=== PATIENT | male | born 1970 | race Two or more races ===

== ENCOUNTER 2020-07-16 11:23 | Emergency (ER) | payer OTHER, SELFPAY ==
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
[2020-07-16 11:33] VITALS: BP 159/102; PULSE 103; RESP 18; TEMP 36.7; O2SAT 99; BMI 28.3
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
[2020-07-16 13:06] VITALS: BP 147/88; PULSE 66; RESP 16; TEMP 36.8; O2SAT 98
[2020-07-16] MEDS: Acetaminophen 325 MG TABLET 650 MG PO (13:18)
[2020-07-16] MEDS: oxyCODONE HCl Immed Release 5 MG TABLET PO (13:44)
== END 2020-07-16 13:47 | disposition home or self-care (01) ==
PROVIDERS: Emergency Provider Emergency Medicine
DX: S16.1XXA Strain of muscle, fascia and tendon at neck level, initial encounter (principal); S63.502A Unspecified sprain of left wrist, initial encounter; M25.532 Pain in left wrist; M54.2 Cervicalgia; V43.52XA Car driver injured in collision with other type car in traffic accident, initial encounter; Y93.9 Activity, unspecified; Y92.410 Unspecified street and highway as the place of occurrence of the external cause; Y99.9 Unspecified external cause status; Z79.899 Other long term (current) drug therapy
CPT/HCPCS: 72125; 73110; 73130; 99283; 99284

== ENCOUNTER 2020-12-04 07:27 | Outpatient (REF) | payer OTHER, SELFPAY ==
[2020-12-04 07:42] LABS: MANUAL DIFF FLAG NO
[2020-12-04 08:17] LABS: Basophils Percent Auto 0.6 % (0-2); Eosinophils Absolute Auto 0.1 X10*3/uL (0.0-0.4); Eosinophils Percent Auto 1.3 % (0-4); Hematocrit 49.8 % (42-52); Hemoglobin 15.2 g/dl (14.0-18.0); Imm Gran Abs Auto 0.08 X10*3/uL (0.00-0.03); Imm Gran Pct Auto 1.5 % (0.0-0.4); Lymphocytes Absolute Auto 1.6 X10*3/uL (1.2-4.9); Mean Corpuscular HGB Conc 30.5 g/dl (31.0-36.0); Mean Corpuscular Volume 88.5 fL (80-98); Mean Platelet Volume 11.2 fL (9.4-12.4); Monocytes Absolute Auto 0.5 X10*3/uL (0.1-1.2); Monocytes Percent Auto 8.9 % (2-11); Neutrophils Percent Auto 57.7 % (45-73); Platelet Count 221 X10*3/uL (160-400); Red Blood Count 5.63 X10*6/uL (4.60-5.80); Red Cell Distribution Width 12.6 % (11.0-16.0); White Blood Count 5.3 X10*3/uL (4.8-10.8)
[2020-12-04 09:04] LABS: Alanine Aminotransferase 19 U/L (0-40); Albumin Level 4.4 g/dL (3.5-5.0); Alkaline Phosphatase 78 U/L (39-117); Anion Gap 14 (12-20); Aspartate Amino Transferase 23 U/L (5-37); Bilirubin Total 0.5 mg/dL (0.0-1.0); Blood Urea Nitrogen 15 mg/dL (9-16); Calcium 9.2 mg/dL (8.4-10.2); Carbon Dioxide 22 mmol/L (22-29); Chloride 108 mmol/L (96-108); Cholesterol 217 mg/dL; Estimated Glomerular Filt Rate > 60; Glucose Fasting 89 mg/dL (60-99); HDL Cholesterol 55 mg/dL; LDL Cholesterol Calculated 141 mg/dl; Potassium 4.6 mmol/L (3.3-5.1); Sodium 139 mmol/L (135-145); Total Protein 7.4 g/dL (6.5-8.0); Triglycerides 108 mg/dL
[2020-12-04 09:35] LABS: PSA,Total (Free>4and<10) 0.49 ng/mL (0.00-4.00)
[2020-12-04 10:47] LABS: Appearance Urine CLEAR; Color Urine YELLOW; Glucose Urine UA NEG (NEG); Leukocyte Esterase Urine NEG (NEG); Nitrite Urine NEG (NEG); Specific Gravity - Urine >= 1.030 (1.005-1.025); Urine Blood NEG (NEG); Urine Ketones NEG (NEG); Urine Protein TRACE MG/DL (NEG-TRACE)
== END 2020-12-04 07:28 | disposition home or self-care (01) ==
LOC: HO.LAB 07:27
PROVIDERS: PCP Internal Medicine; Visit Provider Internal Medicine
DX: Z00.00 Encounter for general adult medical examination without abnormal findings (principal); Z12.5 Encounter for screening for malignant neoplasm of prostate
CPT/HCPCS: 36415; 80053; 80061; 81003; 84153; 84154; 85025

== ENCOUNTER → 2021-03-01 10:38 | Outpatient (BNVA) | payer OTHER, SELFPAY | PROVIDERS: PCP Internal Medicine; Visit Provider Physician Assistant | DX: M77.12 Lateral epicondylitis, left elbow (principal) | CPT/HCPCS: 20551; J1100 ==

== ENCOUNTER 2021-11-03 09:04 | Outpatient (REF) | payer OTHER, SELFPAY ==
[2021-11-03 09:34] LABS: COVID-19 Test Negative (Negative); IDNOW Serial# 55D5AD1C
== END 2021-11-03 09:05 | disposition home or self-care (01) ==
LOC: HO.LAB 09:04
PROVIDERS: Visit Provider Internal Medicine
DX: Z20.822 Contact with and (suspected) exposure to COVID-19 (principal)
CPT/HCPCS: 87635

== ENCOUNTER 2021-12-17 06:38 | Outpatient (REF) | payer OTHER, SELFPAY ==
[2021-12-17 06:50] LABS: MANUAL DIFF FLAG NO
[2021-12-17 07:30] LABS: Basophils Percent Auto 0.5 % (0-2); Eosinophils Absolute Auto 0.1 X10*3/uL (0.0-0.4); Eosinophils Percent Auto 1.8 % (0-4); Hemoglobin 14.5 g/dl (14.0-18.0); Imm Gran Abs Auto 0.07 X10*3/uL (0.00-0.03); Imm Gran Pct Auto 1.2 % (0.0-0.4); Lymphocytes Absolute Auto 1.5 X10*3/uL (1.2-4.9); Lymphocytes Percent Auto 25.9 % (20-40); Mean Corpuscular HGB Conc 31.5 g/dl (31.0-36.0); Mean Corpuscular Hemoglobin 27.7 pg (27.0-33.0); Mean Corpuscular Volume 87.8 fL (80.0-98.0); Mean Platelet Volume 11.5 fL (9.4-12.4); Monocytes Absolute Auto 0.6 X10*3/uL (0.1-1.2); Monocytes Percent Auto 9.8 % (2-11); Neutrophils Absolute Auto 3.4 x10*3/uL (2.0-8.3); Neutrophils Percent Auto 60.8 % (45-73); Platelet Count 248 X10*3/uL (160-400); Red Blood Count 5.24 X10*6/uL (4.60-5.80); Red Cell Distribution Width 12.4 % (11.0-16.0); White Blood Count 5.6 X10*3/uL (4.8-10.8)
[2021-12-17 10:36] LABS: Appearance Urine Clear; Color Urine Yellow; Glucose Urine UA Negative (Negative); Leukocyte Esterase Urine Negative (Negative); Nitrite Urine Negative (Negative); PH 5.5 (5.0-9.0); Specific Gravity - Urine 1.015 (1.005-1.025); Urine Blood Negative (Negative); Urine Ketones Negative (Negative); Urine Protein Negative (Neg-Trace)
[2021-12-17 11:27] LABS: Alanine Aminotransferase 13 U/L (0-40); Albumin Level 4.3 g/dL (3.5-5.0); Alkaline Phosphatase 70 U/L (39-117); Anion Gap 17 (12-20); Aspartate Amino Transferase 19 U/L (5-37); Bilirubin Total 0.5 mg/dL (0.0-1.0); Blood Urea Nitrogen 12 mg/dL (9-16); Calcium 9.3 mg/dL (8.4-10.2); Carbon Dioxide 22 mmol/L (22-29); Chloride 104 mmol/L (96-108); Cholesterol 212 mg/dL; Estimated Glomerular Filt Rate > 60; HDL Cholesterol 49 mg/dL; LDL Cholesterol Calculated 126 mg/dl; Potassium 4.3 mmol/L (3.3-5.1); Sodium 139 mmol/L (135-145); Total Protein 7.1 g/dL (6.5-8.0); Triglycerides 189 mg/dL
[2021-12-17 11:48] LABS: Prostate Specific Antigen 0.48 ng/mL (<0.05-4.0)
[2021-12-17 12:43] LABS: Glucose Fasting 88 mg/dL (60-99)
== END 2021-12-17 06:39 | disposition home or self-care (01) ==
LOC: HO.LAB 06:38
PROVIDERS: PCP Internal Medicine; Visit Provider Internal Medicine
DX: Z00.00 Encounter for general adult medical examination without abnormal findings (principal); Z12.5 Encounter for screening for malignant neoplasm of prostate
CPT/HCPCS: 36415; 80053; 80061; 81003; 84153; 85025

== ENCOUNTER 2022-01-27 06:26 | Outpatient (REF) | payer OTHER, SELFPAY ==
--- NOTE | ~2022-01-27 | XR_ITS ---
EXAMINATION: XR HIP, RIGHT CLINICAL INFORMATION: Pain COMPARISON: None TECHNIQUE: Two views of the right hip. Frontal view of the pelvis. FINDINGS: No fracture or dislocation. The hips are well aligned. Mild degenerative change of the right hip with subchondral sclerosis and small osteophytes. The pelvic rim is intact. The sacroiliac joints and pubic sepsis are intact. Normal bowel gas pattern. XR/XR hip RT w PEL1V IMPRESSION: Mild degenerative change of the right hip.
== END 2022-01-27 06:27 | disposition home or self-care (01) ==
LOC: HO.HOSX 06:26
PROVIDERS: Visit Provider Physician Assistant
DX: M25.551 Pain in right hip (principal)
CPT/HCPCS: 73502

== ENCOUNTER 2022-02-12 06:37 | Outpatient (REF) | payer OTHER, SELFPAY ==
[2022-02-12 07:04] LABS: COVID-19 Test Negative (Negative); IDNOW Serial# 6674DD1D
== END 2022-02-12 06:38 | disposition home or self-care (01) ==
LOC: HO.LAB 06:37
PROVIDERS: Visit Provider Internal Medicine
DX: Z20.822 Contact with and (suspected) exposure to COVID-19 (principal)
CPT/HCPCS: 87635

== ENCOUNTER 2022-02-15 14:57 | Outpatient (REF) | payer OTHER, SELFPAY ==
[2022-02-15 16:29] LABS: Influenza A PCR NEGATIVE (Negative); Influenza B PCR NEGATIVE (Negative); Resp Syncy Virus RNA Qual PCR NEGATIVE (Negative); SARS COV2 PCR INHOUSE NEGATIVE (Negative)
== END 2022-02-15 14:58 | disposition home or self-care (01) ==
LOC: HO.LAB 14:57
PROVIDERS: Visit Provider Physician Assistant Medical
DX: Z20.822 Contact with and (suspected) exposure to COVID-19 (principal); R05.9 Cough, unspecified
CPT/HCPCS: 0241U

== ENCOUNTER 2022-02-25 10:33 | Outpatient (REF) | payer OTHER, SELFPAY ==
[2022-02-25 11:24] LABS: Influenza A PCR NEGATIVE (Negative); Influenza B PCR NEGATIVE (Negative); Resp Syncy Virus RNA Qual PCR NEGATIVE (Negative); SARS COV2 PCR INHOUSE NEGATIVE (Negative)
== END 2022-02-25 10:34 | disposition home or self-care (01) ==
LOC: HO.LAB 10:33
PROVIDERS: Referring Provider Internal Medicine; Visit Provider Internal Medicine
DX: Z20.822 Contact with and (suspected) exposure to COVID-19 (principal)
CPT/HCPCS: 0241U

== ENCOUNTER 2022-02-28 16:09 | Outpatient (REF) | payer OTHER, SELFPAY ==
[2022-02-28 16:23] LABS: MANUAL DIFF FLAG NO
[2022-02-28 16:51] LABS: Basophils Absolute Auto 0.1 X10*3/uL (0.0-0.2); Basophils Percent Auto 0.8 % (0-2); Eosinophils Absolute Auto 0.1 X10*3/uL (0.0-0.4); Hematocrit 44.6 % (42.0-52.0); Hemoglobin 14.6 g/dl (14.0-18.0); Imm Gran Abs Auto 0.04 X10*3/uL (0.00-0.03); Imm Gran Pct Auto 0.6 % (0.0-0.4); Lymphocytes Absolute Auto 1.8 X10*3/uL (1.2-4.9); Lymphocytes Percent Auto 26.7 % (20-40); Mean Corpuscular HGB Conc 32.7 g/dl (31.0-36.0); Mean Corpuscular Hemoglobin 27.2 pg (27.0-33.0); Mean Corpuscular Volume 83.2 fL (80.0-98.0); Mean Platelet Volume 10.8 fL (9.4-12.4); Monocytes Absolute Auto 0.6 X10*3/uL (0.1-1.2); Monocytes Percent Auto 9.1 % (2-11); Neutrophils Percent Auto 60.8 % (45-73); Platelet Count 300 X10*3/uL (160-400); Red Blood Count 5.36 X10*6/uL (4.60-5.80); Red Cell Distribution Width 12.2 % (11.0-16.0); White Blood Count 6.6 X10*3/uL (4.8-10.8)
[2022-02-28 17:28] LABS: Alanine Aminotransferase 15 U/L (0-40); Albumin Level 4.5 g/dL (3.5-5.0); Alkaline Phosphatase 76 U/L (39-117); Anion Gap 10 (12-20); Aspartate Amino Transferase 17 U/L (5-37); Bilirubin Total 0.4 mg/dL (0.0-1.0); Blood Urea Nitrogen 16 mg/dL (9-16); Calcium 9.5 mg/dL (8.4-10.2); Carbon Dioxide 29 mmol/L (22-29); Chloride 104 mmol/L (96-108); Estimated Glomerular Filt Rate > 60; Glucose Random 82 mg/dL (60-115); Potassium 4.6 mmol/L (3.3-5.1); Sodium 138 mmol/L (135-145); Total Protein 7.2 g/dL (6.5-8.0)
== END 2022-02-28 16:10 | disposition home or self-care (01) ==
LOC: HO.LAB 16:09
PROVIDERS: PCP Internal Medicine; Visit Provider Internal Medicine
DX: R42 Dizziness and giddiness (principal)
CPT/HCPCS: 36415; 80053; 85025

== ENCOUNTER 2022-06-09 08:02 | Day surgery (SDC) | payer OTHER, SELFPAY ==
--- NOTE | 2022-06-06 13:19 | HO.ANESPROP2 ---
Documented by User: Susan Serrato NP 06/06/22 13:25 HPI - Anesthesia Eval Consult details Narrative: 51yo M for Colonoscopy FOR[facility]LY [facility], [facility] Active Problems Active Problems: All Active Problems (Updated 01/27/22 @ 08:47 by Aaron Aguirre PA-C) Left lateral epicondylitis (Acute) Tendonitis of right hip flexor (Acute) Surgical History Surgical History (Updated 06/06/22 @ 13:16 by Consuelo Hook RN) H/O elbow surgery H/O excision of mass H/O right inguinal hernia repair Hx of tonsillectomy Social History Social History Alcohol intake: never Patient Tobacco Use Status: Never used Tobacco Use of substances other than those prescribed or required for medical reasons: Yes Substance Use Frequency: Occasionally Advance Directives: No Advance Directives Information Provided: Yes Current occupational status: employed Current occupation: [employer] employee, rt handed Meds Allergies Allergy/AdvReac Type Severity Reaction Status Date / Time levofloxacin [From Levaquin] Allergy Itching Verified 02/15/22 14:08 Penicillins Allergy Itching Verified 02/15/22 14:08 Exam Exam Date and Time: June 06, 2022 1319 Pertinent Lab Results Pertinent Lab Results: Laboratory Tests 02/28/22 02/28/22 16:20 16:20 WBC 6.6 Hgb 14.6 Hct 44.6 Plt Count 300 Sodium 138 Potassium 4.6 Chloride 104 Carbon Dioxide 29 BUN 16 Creatinine 1.00 Assessment and Plan Assessment Anesthesia Assessment: Chart Reviewed Documented by User: Chintan Mohan MD 06/09/22 09:32 [facility] Family History Family history of problems with anesthesia: No Surgical History Surgical History (Updated 06/06/22 @ 13:16 by Consuelo Hook RN) H/O elbow surgery H/O excision of mass H/O right inguinal hernia repair Hx of tonsillectomy History of Problems with Anesthesia: No Social History Social History Alcohol intake: never Patient Tobacco Use Status: Never used Tobacco Use of substances other than those prescribed or required for medical reasons: Yes Substance Use Frequency: Occasionally Advance Directives: No Advance Directives Information Provided: Yes Current occupational status: employed Current occupation: [employer] employee, rt handed Meds Allergies Allergy/AdvReac Type Severity Reaction Status Date / Time levofloxacin [From Levaquin] Allergy Itching Verified 02/15/22 14:08 Penicillins Allergy Itching Verified 02/15/22 14:08 Exam Airway Mallampati Class: I TM Dist: >3cm Neck ROM: Full Heart: ok Lungs: ok Assessment and Plan Assessment Anesthesia Assessment: Anesthesia Plan Discussed Final Anesthetic Review Family History of Problems with Anesthesia: No History of Problems with Anesthesia: No NPO: Yes ASA Class: I Final Preanesthetic Review: No Changes in Pt Med Stat, Meds/Allgs Chart Reviewed, Consent Obtained/Reviewed and Anes Risks/Benef Reviewed Patient Risk: Low Procedure Risk: Low Anesthetic Plan Anesthetic Plan: MAC: and Agree w/ Assess. and Plan Disposition: Standard PACU
[2022-06-09 08:12] VITALS: BP 142/80; PULSE 54; RESP 16; TEMP 36; O2SAT 100; BMI 23.0
[2022-06-09] MEDS: Lactated Ringers 1,000 ML 100 ML IVCONT (08:31)
[2022-06-09 09:57] VITALS: BP 83/48; PULSE 53; RESP 16; TEMP 36.2; O2SAT 98
--- NOTE | 2022-06-09 09:57 | PM.OP ---
Brief Operative Note Date of Service: 06/09/22 Pre-op diagnosis: Screening Post-op diagnosis: other (Internal hemorrhoids) Procedure: Colonoscopy to the cecum and TI Surgeon: Ze Gilmore Anesthesia: MAC Was an [employer] used for this Procedure?: No Estimated blood loss (mL): 0 Pathology: none sent Condition: stable Disposition: PACU
[2022-06-09 10:02] VITALS: BP 91/55; PULSE 49; RESP 16; O2SAT 100
[2022-06-09 10:07] VITALS: BP 100/55; PULSE 52; RESP 18; O2SAT 100
[2022-06-09 10:12] VITALS: BP 109/77; PULSE 53; RESP 18; O2SAT 100
[2022-06-09 10:19] VITALS: BP 108/63; PULSE 53; RESP 18; TEMP 36.1; O2SAT 100
--- NOTE | 2022-06-09 11:31 | OP_ITS ---
DATE OF SERVICE: 06/09/2022 SURGEON: Ze Gilmore MD INDICATIONS: The patient presents for evaluation of colorectal cancer screening. Full consent has been obtained from him for this, including risks of bleeding and perforation. PREOPERATIVE DIAGNOSIS: Colorectal cancer screening. POSTOPERATIVE DIAGNOSIS: Colorectal cancer screening, internal hemorrhoids. PROCEDURE PERFORMED: Colonoscopy to the cecum and terminal ileum. ESTIMATED BLOOD LOSS: COMPLICATIONS: ANESTHESIA: Monitored anesthesia care. ASSISTANTS: SPECIMENS: DESCRIPTION OF PROCEDURE: The patient was placed in the left lateral decubitus position. The digital rectal exam revealed no abnormalities. The Olympus video pediatric colonoscope was entered into the rectum and advanced easily to the cecum. Once in the cecum, I did identify a normal-appearing cecal pouch with appendiceal orifice and a normal-appearing ileocecal valve. The terminal ileum was cannulated and appeared normal. The scope was withdrawn back in the colon. The entire cecum and ileocecal valve appeared normal. The scope was slowly withdrawn assessing all mucosal surface carefully. Preparation was excellent. I did not visualize any sign of polyps, colitis, nor angiodysplasia. In the rectum, the scope was retroflexed visualizing small internal hemorrhoids, but no other pathology. Rectal mucosa appeared normal. Scope was straightened out and withdrawn from the patient. He tolerated the procedure well and was returned to the recovery area in stable condition. IMPRESSION: Internal hemorrhoids. PLAN: Given today's negative colonoscopy and negative family history, I would recommend a followup colonoscopy in 10 years for further screening. He will otherwise see me on a p.r.n. basis. This has been discussed with his . MD MYLA Porter/[place] / [phone] MTDJoanne
== END 2022-06-09 10:37 | disposition home or self-care (01) ==
PROVIDERS: Visit Provider Internal Medicine
PROC: 0DJD8ZZ Inspection of Lower Intestinal Tract, Via Natural or Artificial Opening Endoscopic (ICD-10-PCS; CPT 45378; principal; 2022-06-09 09:40)
DX: Z12.11 Encounter for screening for malignant neoplasm of colon (principal); K64.8 Other hemorrhoids
CPT/HCPCS: 45378; J3010

== ENCOUNTER 2022-06-19 14:20 | Outpatient (REF) | payer OTHER, SELFPAY ==
--- NOTE | ~2022-06-19 | US_ITS ---
EXAMINATION: US RETROPERITONEAL COMPLETE (RENAL) CLINICAL INFORMATION: Nephrolithiasis. COMPARISON: Ultrasound retroperitoneal complete (renal) 12/06/2018. TECHNIQUE: Real-time imaging of the kidneys and bladder. FINDINGS: RIGHT KIDNEY: 10.1 x 5.8 x 4.8 cm (SAG x AP x TRV). The kidney is normal in size, contour, and echogenicity. Renal cortical thickness is normal. No calculi or focal parenchymal lesions. No hydronephrosis. LEFT KIDNEY: 11.8 x 5.9 x 4.7 cm (SAG x AP x TRV). The kidney is normal in size, contour, and echogenicity. Renal cortical thickness is normal. No calculi or focal parenchymal lesions. No hydronephrosis. BLADDER: Well distended and normal. Bilateral ureteral jets are demonstrated. Prevoid bladder volume is 225.9 mL. Postvoid bladder volume is 21.8 mL. The prostate volume is 17.0 mL. US/US retroperitoneal comp IMPRESSION: No hydronephrosis or nephrolithiasis..
== END 2022-06-19 14:21 | disposition home or self-care (01) ==
LOC: HO.US 14:20
PROVIDERS: PCP Internal Medicine; Visit Provider Internal Medicine
DX: N20.0 Calculus of kidney (principal)
CPT/HCPCS: 76770

== ENCOUNTER 2022-12-13 08:51 | Emergency (ER) | payer OTHER, SELFPAY ==
--- NOTE | ~2022-12-13 | CT_ITS ---
EXAMINATION: CT HEAD WITHOUT CONTRAST CLINICAL INFORMATION: Intractable posterior headache for 2 weeks COMPARISON: None available. TECHNIQUE: Contiguous axial imaging was performed from the skull base to vertex without intravenous administration of contrast. This CT examination was performed using dose optimization techniques as appropriate, variously including the following: *Automated exposure control *Adjustment of mA and/or kV according to patient size (this includes techniques or standardized protocols for targeted exams where dose is matched to indication/reason for exam; i.e. extremities or head) *Use of iterative reconstruction technique DLP: 561 mGy-cm FINDINGS: There is no evidence of an extra-axial collection. There is no evidence of intra-axial or extra-axial hemorrhage. The ventricles and extra-axial CSF spaces are appropriate. Rodriguez-white matter differentiation is normal. No mass, mass effect or infarct. Review at bone windows is normal. No skull fracture. Visualized paranasal sinuses, air cells and middle ears are clear. CT/CT head/brain wo IV con IMPRESSION: Unremarkable exam.
[2022-12-13 09:05] VITALS: BP 129/69; PULSE 59; RESP 16; TEMP 36.2; O2SAT 100; BMI 23.3
--- NOTE | 2022-12-13 09:21 | PC.NURSE ---
Patient reports 10/10 headache that started 2 weeks ago and has gotten worse. Patient reports hx of vertigo but usually does not last this long. Patient denies chest pain or sob, reports nausea with no vomiting
--- NOTE | 2022-12-13 10:40 | PC.NURSE ---
x2 attempts to start IV unsuccessful at this time
[2022-12-13 10:54] LABS: MANUAL DIFF FLAG NO
[2022-12-13 10:55] LABS: Basophils Percent Auto 0.5 % (0-2); Eosinophils Absolute Auto 0.1 X10*3/uL (0.0-0.4); Eosinophils Percent Auto 0.8 % (0-4); Hematocrit 49.9 % (42.0-52.0); Hemoglobin 16.3 g/dl (14.0-18.0); Imm Gran Abs Auto 0.04 X10*3/uL (0.00-0.03); Imm Gran Pct Auto 0.7 % (0.0-0.4); Lymphocytes Absolute Auto 1.3 X10*3/uL (1.2-4.9); Lymphocytes Percent Auto 21.3 % (20-40); Mean Corpuscular HGB Conc 32.7 g/dl (31.0-36.0); Mean Corpuscular Hemoglobin 27.8 pg (27.0-33.0); Mean Platelet Volume 10.4 fL (9.4-12.4); Monocytes Absolute Auto 0.5 X10*3/uL (0.1-1.2); Monocytes Percent Auto 8.3 % (2-11); Neutrophils Absolute Auto 4.1 x10*3/uL (2.0-8.3); Neutrophils Percent Auto 68.4 % (45-73); Platelet Count 268 X10*3/uL (160-400); Red Blood Count 5.87 X10*6/uL (4.60-5.80); Red Cell Distribution Width 12.4 % (11.0-16.0)
[2022-12-13] MEDS: diphenhydrAMINE HCL 50 MG/ML VIAL 25 MG IVPUSH (10:58)
[2022-12-13] MEDS: Ketorolac Tromethamine 15 MG/ML VIAL IVPUSH (10:58)
[2022-12-13] MEDS: Metoclopramide HCl 10 MG/2 ML VIAL IVPUSH (10:58)
[2022-12-13] MEDS: 0.9 % Sodium Chloride 1,000 ML 999 ML IV (11:00)
--- NOTE | 2022-12-13 11:02 | ED_ITS ---
HPI - Headache General Chief Complaint: Headache Stated Complaint: headache 2x weeks Time Seen by Provider: 12/13/22 09:34 Source: patient Mode of arrival: ambulatory Limitations: no limitations History of Present Illness HPI Narrative: Patient is a 52 old male presents emergency department for evaluation of an intractable headache. Reports onset 2 weeks ago primarily to the occipital region radiating diffusely across the front with associated nausea vomiting, and intermittent dizziness described as room spinning sensation. He reports a history of headaches quite a few years back, uncertain of exact time frame, but has not had any issues recently. The headache has been constant, without alleviation despite the use of ibuprofen 800 mg and Excedrin migraine, has varying intensity, typically finds that it is better in the evening when he is laying down. Denies any red flag symptoms including fevers, chills, neck stiffness, malaise, aphasia, weakness, poor coordination, descriptors such as ?the worst headache ever ?or ?thunderclap?, or painful temporal region. Denies lightheadedness, vision changes, URI symptoms, chest pain, shortness of breath, numbness or tingling of the extremities. Related Data Previous Rx's Medication Instructions Recorded ibuprofen 600 mg tablet 600 mg PO Q6H PRN pain #20 tabs 07/16/20 benzonatate 100 mg capsule 100 mg PO BID-TID PRN cough #30 02/15/22 caps nogejhmmuwyy-vujquzclazqty-kluzrje 5 ml PO Q4-6H PRN flu symptoms 02/15/22 6.25 mg-5 mg-10 mg/5 mL oral syrup #118 mL Allergies Allergy/AdvReac Type Severity Reaction Status Date / Time levofloxacin [From Levaquin] Allergy Itching Verified 12/13/22 09:05 Penicillins Allergy Itching Verified 12/13/22 09:05 Review of Systems 2 Review of Systems: Constitutional : No Fever, No Chills, No Fatigue ENT/Mouth : No sore throat, No Rhinorrhea Eyes: No Eye Pain, No Swelling, No Redness Cardiovascular : No Chest Pain, No SOB, No Dyspnea on Exertion Respiratory : No Cough, No Sputum Gastrointestinal : No Nausea, No Vomiting, No Diarrhea, No abdominal Pain Genitourinary : No Dysuria, No Urinary Frequency, No Hematuria, Musculoskeletal : No joint pain, No Myalgias, No Joint Swelling Skin : No Skin Lesions, No rash Neuro : No Weakness, No Numbness, No Dizziness, positive Headache Psych : No Anxiety/Panic, No Depression Heme/Lymph: No Bruising, No Bleeding,No Lymphadenopathy Endocrine : No Polyuria, No Polydipsia Yes all other systems are reviewed and are negative [facility] Past Medical History Attestation statement: The following information was validated with the patient. Source: old records reviewed Surgical History (Updated 06/06/22 @ 13:16 by Consuelo Hook RN) H/O excision of mass H/O elbow surgery Hx of tonsillectomy H/O right inguinal hernia repair Social History Social History Alcohol intake: current Alcohol intake frequency: holidays/special occasions only Patient Tobacco Use Status: Never used Tobacco Smoked in Last 30 Days: No Use of substances other than those prescribed or required for medical reasons: Yes Substance Use Type: Marijuana Advance Directives: No Advance Directives Information Provided: No Current occupational status: employed Current occupation: [employer] employee, rt handed Physical Exam 2 Vital Signs: Vital Signs: Last Vital Signs Temp 97.2 F 12/13/22 09:05 Pulse 59 12/13/22 09:05 Resp 16 12/13/22 09:05 BP 129/69 12/13/22 09:05 Pulse Ox 100 12/13/22 09:05 O2 Del Method Room Air 12/13/22 09:05 BMI result Body Mass Index 23.3 Appearance: Alert.?Oriented to person, place and time. No acute distress.?Normal affect. Head: Normocephalic, atraumatic Eyes: Pupils equal, round and reactive to light. EOMI. No nystagmus. No tenderness to palpation over the temporal region. ENT: External auditory canal normal tympanic membrane pearly venegas and intact bilaterally. Oropharynx normal. Neck: Normal inspection.? Neck supple. CVS: Heart sounds normal. Normal heart rate and rhythm.? Pulses normal.?? Respiratory: No respiratory distress.? Lung sounds clear to auscultation bilaterally?? Abdomen: Soft and non-tender. Normoactive bowel sounds. ?? Skin: Skin warm and dry.? Normal skin color.? ?? Extremities: No lower extremity edema.? Neuro: Moves all extremities spontaneously. Sensation intact bilaterally. CN II- XII intact. No focal neuro deficits. Ambulatory with steady gait. Course Reevaluation(s) Reevaluation #1: labs overall unremarkable viral testing negative. CT of the head without acute intracranial pathology. After receiving medication, has significant improvement in headache. At this time feel that he is stable for discharge home and outpatient follow-up with primary care provider. Discussed worrisome signs and symptoms that would warrant re-evaluation emergency department. All questions answered. Stable for discharge. Time: 13:03 Medications Administered Discontinued Medications Generic Name Dose Route Start Last Admin Trade Name Darian PRN Reason Stop Dose Admin Diphenhydramine HCl 25 mg 12/13/22 10:15 12/13/22 10:58 Diphenhydramine Hcl 50 Mg/Ml Vial IVPUSH 12/13/22 10:16 25 mg ONCE ONE Administration Sodium Chloride 1,000 mls @ 999 mls/hr 12/13/22 10:15 12/13/22 12:47 Ns IV 12/13/22 11:15 Infused .Q1H1M FAVIOLA Infusion Ketorolac Tromethamine 15 mg 12/13/22 10:15 12/13/22 10:58 Ketorolac Tromethamine 15 Mg/Ml Vial IVPUSH 12/13/22 10:16 15 mg ONCE ONE Administration Metoclopramide HCl 10 mg 12/13/22 10:15 12/13/22 10:58 Metoclopramide Hcl 10 Mg/2 Ml Vial IVPUSH 12/13/22 10:16 10 mg ONCE ONE Administration Medical Decision Making Medical Decision Making MDM Narrative: Patient is a 52 old male presenting to emergency department for evaluation of intractable headache as per HPI, he endorses a history of recurrent , unable to specify whether this feels similar to prior, it has been many years since he has experienced one. Has been intractable for the past 2 weeks, otherwise there are no red flag symptoms, no focal neurological deficits, no high risk comorbidities, under obtain CT of the head to exclude intracranial abnormality in addition to basic labs in viral testing. Will trial migraine cocktail including a 1L normal saline IV fluid, Toradol /Reglan /Benadryl IV and re- evaluate. Differential diagnosis with presentation includes SDH, SAH, ICH, COMMUNITY LIVING SPECIALIST mass, meningitis, encephalitis, CVA, GCA, migraine, headache. Differential Diagnosis Differential Diagnoses: The differential diagnosis associated with the presentation includes (SDH, SAH, ICH, COMMUNITY LIVING SPECIALIST mass, meningitis, encephalitis, CVA, GCA, migraine, headache) Admission/Observation Consideration of admission/observation: Escalation of care including admission/observation considered ( Considered admission for intractable headache, see narrative above in course narrative for further detail.) Lab Data MDM Lab Attestation statement: I reviewed the patient's lab results. CBC is without leukocytosis or anemia. CMP unremarkable and lipase within normal limits. COVID- 19 and influenza testing are negative. 12/13/22 10:50 12/13/22 11:50 Labs: Lab Results 12/13/22 12/13/22 12/13/22 Range/Units 10:50 10:56 11:50 WBC 6.0 (4.8-10.8) X10*3/uL RBC 5.87 H (4.60-5.80) X10*6/uL Hgb 16.3 (14.0-18.0) g/dl Hct 49.9 (42.0-52.0) % MCV 85.0 (80.0-98.0) fL MCH 27.8 (27.0-33.0) pg MCHC 32.7 (31.0-36.0) g/dl RDW 12.4 (11.0-16.0) % Plt Count 268 (160-400) X10*3/uL MPV 10.4 (9.4-12.4) fL Immature Gran % (Auto) 0.7 H (0.0-0.4) % Neut % (Auto) 68.4 (45-73) % Lymph % (Auto) 21.3 (20-40) % [place] % (Auto) 8.3 (2-11) % Eos % (Auto) 0.8 (0-4) % Baso % (Auto) 0.5 (0-2) % Lymph # (Auto) 1.3 (1.2-4.9) X10*3/uL [place] # (Auto) 0.5 (0.1-1.2) X10*3/uL Eos # (Auto) 0.1 (0.0-0.4) X10*3/uL Baso # (Auto) 0.0 (0.0-0.2) X10*3/uL Abs Immat Gran (auto) 0.04 H (0.00-0.03) X10*3/uL Absolute Neuts (auto) 4.1 (2.0-8.3) x10*3/uL Absolute Nucleated RBC 0.000 (0.0-0.012) X10*3/uL Nucleated RBC % (auto) 0.0 (0.0-0.2) /100WBC Sodium 141 (135-145) mmol/L Potassium 4.0 (3.3-5.1) mmol/L Chloride 111 H (96-108) mmol/L Carbon Dioxide 20 L (22-29) mmol/L Anion Gap 14 (12-20) BUN 11 (9-16) mg/dL Creatinine 0.93 (0.5-1.4) mg/dL Estim Creat Clear Calc 70.1 Estimated GFR > 60 Random Glucose 81 (60-115) mg/dL Calcium 9.4 (8.4-10.2) mg/dL Magnesium 2.2 (1.6-2.6) mg/dL Total Bilirubin 0.5 (0.0-1.0) mg/dL AST 19 (5-37) U/L ALT 15 (0-40) U/L Alkaline Phosphatase 64 (39-117) U/L Total Protein 7.2 (6.5-8.0) g/dL Albumin 4.2 (3.5-5.0) g/dL Lipase 25 (8-78) U/L COVID-19 (ROXY) Negative (Negative) COVID-19 Clin Com See Note Influenza Type A (ANGEL) Negative (Negative) Influenza Type B (ANGEL) Negative (Negative) Influenza A & B Note See Note Independent Interpretation I performed an independent interpretation of an: CT Scan Radiology Impression Discussion of test interpretation with radiology: I have reviewed the radiologist's reading. Radiologist Impression: CT/CT head/brain wo IV con IMPRESSION: Unremarkable exam. Independent Historian Clinical information obtained from an independent historian. History obtained from or confirmed by: Spouse ( present at bedside confirms history) External Record Review External record reviewed: Outpatient record Discharge Plan Discharge Clinical Impression: Headache Patient Disposition: Home, Self-Care Instructions: Acute Headache (ED) Prescriptions: No Action ibuprofen 600 mg tablet 600 mg PO Q6H PRN (Reason: pain) Qty: 20 0RF benzonatate 100 mg capsule 100 mg PO BID-TID PRN (Reason: cough) Qty: 30 0RF dxkvpjgyzzfi-arlbssdnj-rdjbjxw 6.25-5-10 mg/5 mL syrup 5 ml PO Q4-6H PRN (Reason: flu symptoms) Qty: 118 0RF Referrals: Ros Gross MD [Primary Care Provider] -
--- NOTE | 2022-12-13 11:12 | PC.NURSE ---
Patient medicated per apr, fluids running per order, at bedside
[2022-12-13 11:25] LABS: COVID-19 Test Negative (Negative); IDNOW Serial# 08D9AD1C
[2022-12-13 11:26] LABS: IDNOW Serial# BCCEAD1C; Influenza A Negative (Negative); Influenza B2 Negative (Negative)
--- NOTE | 2022-12-13 12:11 | PC.NURSE ---
Patient reports headache has improved. Fluids infusing per order
[2022-12-13 12:14] LABS: Alanine Aminotransferase 15 U/L (0-40); Albumin Level 4.2 g/dL (3.5-5.0); Alkaline Phosphatase 64 U/L (39-117); Anion Gap 14 (12-20); Aspartate Amino Transferase 19 U/L (5-37); Bilirubin Total 0.5 mg/dL (0.0-1.0); Blood Urea Nitrogen 11 mg/dL (9-16); Calcium 9.4 mg/dL (8.4-10.2); Carbon Dioxide 20 mmol/L (22-29); Chloride 111 mmol/L (96-108); Creatinine Clr Calc Pharmacy 70.1; Estimated Glomerular Filt Rate > 60; Glucose Random 81 mg/dL (60-115); Lipase 25 U/L (8-78); Magnesium 2.2 mg/dL (1.6-2.6); Sodium 141 mmol/L (135-145); Total Protein 7.2 g/dL (6.5-8.0)
--- NOTE | 2022-12-13 13:28 | PC.NURSE ---
Discharge plan reviewed with patient who verbalized understanding
== END 2022-12-13 13:28 | disposition home or self-care (01) ==
PROVIDERS: Nurse Practitioner Family; Emergency Provider Emergency Medicine; PCP Internal Medicine
DX: R51.9 Headache, unspecified (principal); Z11.52 Encounter for screening for COVID-19; F12.90 Cannabis use, unspecified, uncomplicated
CPT/HCPCS: 70450; 80053; 83690; 83735; 85025; 87502; 87635; 96361; 96374; 96375; 99284; J1200; J1885; J2765

== ENCOUNTER 2022-12-24 12:33 | Outpatient (REF) | payer OTHER, SELFPAY ==
--- NOTE | ~2022-12-24 | MR_ITS ---
EXAMINATION: MR BRAIN WITHOUT AND WITH CONTRAST CLINICAL INFORMATION: 52-year-old with acute nonintractable headaches, dizziness and vertigo. COMPARISON: None available. TECHNIQUE: Multiplanar, multisequence MRI of the brain/IACs was obtained before and after the intravenous administration of 6 mL Gadavist. FINDINGS: IACs: Bilaterally symmetric, no mass lesions or abnormal enhancement. CN VII-VIII complexes normal. AICA LOOPS: None. MEMBRANOUS LABYRINTHS: Normal, no abnormal enhancement, normal fluid signal. CP ANGLE CISTERNS: No mass lesions or abnormal enhancement. BRAIN VOLUME: Within normal limits within the limitations of qualitative assessment. BRAIN AND MENINGES: DWI sequence demonstrates no restricted diffusion to suggest acute or subacute cerebral ischemia. The brain is normal in morphology. There are scattered small foci of FLAIR/T2 signal hyperintensity in the subcortical and deeper white matter of both cerebral hemispheres with no abnormal enhancement, likely reflecting small zones of chronic ischemic microangiopathy and/or migraine-associated vasculopathy. Gradient refocused imaging demonstrates no abnormal susceptibility-weighted signal loss to suggest hemorrhage, hemosiderin staining or abnormal mineralization. No intracranial mass lesions, extra-axial fluid collections, pathologic intracranial enhancement, space-occupying process or mass effect are identified. VESSELS: Normal signal voids are seen in the visualized major intracranial vessels. VENTRICLES AND SUBARACHNOID SPACES: The ventricular system and subarachnoid spaces are within normal range; there is no hydrocephalus. ORBITAL STRUCTURES: The visualized orbital structures are grossly unremarkable within the limitations of the study. OSSEOUS STRUCTURES, SINUSES/MASTOIDS, EXTRACRANIAL SOFT TISSUES: Unremarkable. MR/MR head/brain wo/w con IMPRESSION: 1. Normal appearance to the auditory apparatus with a normal appearance to the IACs, inner ear structures and CP angle cisterns. No mass lesion or abnormal enhancement. 2. Scattered nonenhancing, nonspecific white matter T2 hyperintensities in the cerebral hemispheres bilaterally, likely reflecting small zones of chronic ischemic microangiopathy and/or migraine-associated vasculopathy.
[2022-12-24] MEDS: gadobutroL 7.5 ML VIAL IVPUSH (13:06)
== END 2022-12-24 12:34 | disposition home or self-care (01) ==
LOC: HO.MRI 12:33
PROVIDERS: Visit Provider Internal Medicine
DX: R42 Dizziness and giddiness (principal); R51.9 Headache, unspecified
CPT/HCPCS: 70553; A9585

== ENCOUNTER 2023-03-09 15:09 | Outpatient (REF) | payer OTHER, SELFPAY ==
[2023-03-09 15:33] LABS: MANUAL DIFF FLAG NO
[2023-03-09 16:18] LABS: Basophils Percent Auto 0.6 % (0-2); Eosinophils Absolute Auto 0.1 X10*3/uL (0.0-0.4); Eosinophils Percent Auto 1.7 % (0-4); Hematocrit 44.9 % (42.0-52.0); Hemoglobin 14.2 g/dl (14.0-18.0); Imm Gran Abs Auto 0.04 X10*3/uL (0.00-0.03); Imm Gran Pct Auto 0.8 % (0.0-0.4); Lymphocytes Absolute Auto 1.5 X10*3/uL (1.2-4.9); Lymphocytes Percent Auto 28.3 % (20-40); Mean Corpuscular HGB Conc 31.6 g/dl (31.0-36.0); Mean Corpuscular Hemoglobin 27.7 pg (27.0-33.0); Mean Corpuscular Volume 87.5 fL (80.0-98.0); Mean Platelet Volume 11.8 fL (9.4-12.4); Monocytes Absolute Auto 0.5 X10*3/uL (0.1-1.2); Monocytes Percent Auto 8.7 % (2-11); Neutrophils Absolute Auto 3.2 x10*3/uL (2.0-8.3); Neutrophils Percent Auto 59.9 % (45-73); Platelet Count 249 X10*3/uL (160-400); Red Blood Count 5.13 X10*6/uL (4.60-5.80); Red Cell Distribution Width 12.3 % (11.0-16.0); White Blood Count 5.3 X10*3/uL (4.8-10.8)
[2023-03-09 16:44] LABS: Alanine Aminotransferase 14 U/L (0-40); Albumin Level 4.4 g/dL (3.5-5.0); Alkaline Phosphatase 60 U/L (39-117); Anion Gap 13 (12-20); Aspartate Amino Transferase 18 U/L (5-37); Bilirubin Total 0.5 mg/dL (0.0-1.0); Blood Urea Nitrogen 18 mg/dL (9-16); Calcium 9.5 mg/dL (8.4-10.2); Carbon Dioxide 23 mmol/L (22-29); Chloride 109 mmol/L (96-108); Estimated Glomerular Filt Rate > 60; Glucose Random 90 mg/dL (60-115); Lipase 33 U/L (8-78); Potassium 3.7 mmol/L (3.3-5.1); Sodium 141 mmol/L (135-145); Total Protein 7.4 g/dL (6.5-8.0)
== END 2023-03-09 15:10 | disposition home or self-care (01) ==
LOC: HO.LAB 15:09
PROVIDERS: Visit Provider Physician Assistant Medical
DX: R10.12 Left upper quadrant pain (principal); R14.0 Abdominal distension (gaseous); R10.13 Epigastric pain
CPT/HCPCS: 36415; 80053; 83690; 85025

== ENCOUNTER 2023-03-16 08:57 | Outpatient (REF) | payer OTHER, SELFPAY ==
--- NOTE | ~2023-03-16 | US_ITS ---
EXAMINATION: US ABDOMEN COMPLETE CLINICAL INFORMATION: Left upper quadrant pain, gaseous abdominal distention, dyspnea. COMPARISON: Ultrasound kidneys and bladder 06/19/2022 and 12/06/2018. CT abdomen and pelvis 10/21/2018. TECHNIQUE: Real-time imaging of the abdominal viscera. FINDINGS: PANCREAS: Normal. ABDOMINAL AORTA: The proximal, mid, and distal segments are normal in caliber. INFERIOR VENA CAVA: Visualized portions are normal. LIVER: Normal. The liver is normal in size. The liver contour is normal. Parenchymal echogenicity is normal. No focal hepatic lesion. There is no intrahepatic biliary duct dilatation seen. GALLBLADDER: Normal. The gallbladder is physiologically distended without evidence of stones, sludge, polyps, wall thickening or pericholecystic fluid. COMMON BILE DUCT: Normal in caliber measuring 0.3 cm in diameter. RIGHT KIDNEY: At the interpolar aspect, an 8 mm benign, simple cyst is seen, for which no imaging follow-up is recommended. No hydronephrosis or renal calculi. The kidney measures 10 cm in maximum dimension. LEFT KIDNEY: Normal. No hydronephrosis. No renal calculi or focal parenchymal lesions. The kidney measures 10.4 cm in maximum dimension. SPLEEN: Normal. The spleen measures 9.2 cm in maximum dimension. FREE FLUID: None. US/US abdomen complete IMPRESSION: Unremarkable examination.
== END 2023-03-16 08:58 | disposition home or self-care (01) ==
LOC: HO.HMGCX 08:57
PROVIDERS: PCP Internal Medicine; Visit Provider Internal Medicine
DX: R10.13 Epigastric pain (principal); R10.12 Left upper quadrant pain; R14.0 Abdominal distension (gaseous)
CPT/HCPCS: 76700

== ENCOUNTER 2023-04-20 15:00 | Outpatient (RCR) | payer OTHER, SELFPAY ==
[2023-04-13 14:13] VITALS: BP 135/72; PULSE 67
== END 2023-09-22 08:57 | disposition home or self-care (01) ==
LOC: HO.PT 15:00
PROVIDERS: PCP Internal Medicine; Visit Provider Internal Medicine
DX: R42 Dizziness and giddiness (principal)
CPT/HCPCS: 97112; 97161

== ENCOUNTER 2023-11-10 06:33 | Outpatient (REF) | payer OTHER, SELFPAY ==
[2023-11-10 11:00] LABS: Prostate Specific Antigen Scr 0.52 ng/mL (<0.05-4.0)
== END 2023-11-10 06:34 | disposition home or self-care (01) ==
LOC: HO.LAB 06:33
PROVIDERS: PCP Internal Medicine; Visit Provider Internal Medicine
DX: Z12.5 Encounter for screening for malignant neoplasm of prostate (principal)
CPT/HCPCS: 36415; 84153

== ENCOUNTER 2024-02-26 00:59 | Emergency (ER) | payer OTHER, SELFPAY ==
[2024-02-26 01:07] VITALS: BP 106/81; PULSE 72; RESP 18; TEMP 36.7; O2SAT 100; BMI 23.0
[2024-02-26 01:43] LABS: MANUAL DIFF FLAG NO
[2024-02-26 01:44] LABS: Basophils Percent Auto 0.3 % (0-2); Eosinophils Absolute Auto 0.2 X10*3/uL (0.0-0.4); Eosinophils Percent Auto 1.7 % (0-4); Hematocrit 44.7 % (42.0-52.0); Hemoglobin 14.7 g/dl (14.0-18.0); Imm Gran Abs Auto 0.06 X10*3/uL (0.00-0.03); Imm Gran Pct Auto 0.6 % (0.0-0.4); Lymphocytes Absolute Auto 0.4 X10*3/uL (1.2-4.9); Lymphocytes Percent Auto 4.5 % (20-40); Mean Corpuscular HGB Conc 32.9 g/dl (31.0-36.0); Mean Corpuscular Hemoglobin 27.8 pg (27.0-33.0); Mean Corpuscular Volume 84.7 fL (80.0-98.0); Mean Platelet Volume 10.5 fL (9.4-12.4); Monocytes Absolute Auto 0.7 X10*3/uL (0.1-1.2); Monocytes Percent Auto 7.4 % (2-11); Neutrophils Absolute Auto 8.4 x10*3/uL (2.0-8.3); Neutrophils Percent Auto 85.5 % (45-73); Platelet Count 210 X10*3/uL (160-400); Red Blood Count 5.28 X10*6/uL (4.60-5.80); Red Cell Distribution Width 12.5 % (11.0-16.0); White Blood Count 9.8 X10*3/uL (4.8-10.8)
[2024-02-26 01:56] LABS: IDNOW Serial# 58CA691E; Strep A Nucleic Acid Negative (Negative)
[2024-02-26 02:07] LABS: Alanine Aminotransferase 22 U/L (0-40); Albumin Level 4.3 g/dL (3.5-5.0); Anion Gap 13 (12-20); Aspartate Amino Transferase 29 U/L (5-37); Bilirubin Total 0.3 mg/dL (0.0-1.0); Blood Urea Nitrogen 21 mg/dL (9-16); Calcium 9.6 mg/dL (8.4-10.2); Carbon Dioxide 24 mmol/L (22-29); Chloride 108 mmol/L (96-108); Creatinine Clr Calc Pharmacy 68.5; Estimated Glomerular Filt Rate > 60; Glucose Random 105 mg/dL (60-115); Lipase 32 U/L (8-78); Potassium 4.4 mmol/L (3.3-5.1); Sodium 141 mmol/L (135-145); Total Protein 7.8 g/dL (6.5-8.0)
[2024-02-26 02:10] LABS: Alkaline Phosphatase 78 U/L (39-117)
[2024-02-26 02:21] LABS: Influenza A PCR POSITIVE (Negative); Influenza B PCR NEGATIVE (Negative); Resp Syncy Virus RNA Qual PCR NEGATIVE (Negative); SARS COV2 PCR INHOUSE NEGATIVE (Negative)
[2024-02-26 04:23] VITALS: BP 119/71; PULSE 67; RESP 16; TEMP 36.6; O2SAT 100
[2024-02-26] MEDS: Ondansetron ODT 4 MG TAB.RAPDIS TRANSLINGU (07:37)
[2024-02-26] MEDS: Ketorolac Tromethamine 15 MG/ML VIAL IM (07:38)
--- NOTE | 2024-02-26 07:49 | ED.GENADULT ---
HPI - General Adult General Chief complaint: General Medical Stated complaint: n/v, stomach pain, fever Time Seen by Provider: 02/26/24 06:39 Source: patient Mode of arrival: ambulatory Limitations: no limitations History of Present Illness ED Provider: Solange Henderson NP HPI narrative: Patient is a 53-year-old male who presents emergency department for evaluation of multiple viral type symptoms including nausea without vomiting, diarrhea, pain to the left side of his abdomen described as cramping, nonproductive cough, sore throat, fevers, chills, body aches, intermittent headache. Denies known sick contacts. Denies dizziness, lightheadedness, neck pain, neck stiffness, chest pain, shortness of breath, difficulty breathing, hematochezia or melena, urogenital symptoms, numbness or tingling of the extremities. Related Data Previous Rx's ?Medication ?Instructions ?Recorded ibuprofen 600 mg tablet 600 mg PO Q6H PRN pain #20 tabs 07/16/20 benzonatate 100 mg capsule 100 mg PO BID-TID PRN cough #30 02/15/22 caps yujbhuahoxjt-lbyxdqijtylbn-fvmrawn 5 ml PO Q4-6H PRN flu symptoms 02/15/22 6.25 mg-5 mg-10 mg/5 mL oral syrup #118 mL Allergies Allergy/AdvReac Type Severity Reaction Status Date / Time levofloxacin [From Levaquin] Allergy Itching Verified 02/26/24 01:11 Penicillins Allergy Itching Verified 02/26/24 01:11 Review of Systems Review of Systems: Yes all other systems are reviewed and are negative PMFSH Past Medical History Attestation statement: The following information was validated with the patient. Source: old records reviewed Surgical History H/O excision of mass H/O elbow surgery Hx of tonsillectomy H/O right inguinal hernia repair Social History Social History Alcohol intake: current Alcohol intake frequency: holidays/special occasions only Patient Tobacco Use Status: Never used Tobacco Substance Use Type: Marijuana Advance Directives: No Advance Directives Information Provided: Yes Do you have a plan to hurt others: No Plan Current occupational status: employed Current occupation: [employer] [place] [place] employee, rt handed Physical Exam ED Vital Signs: Vital Signs - 24 hr 02/26/24 01:07 02/26/24 04:23 02/26/24 07:56 Temperature 98.1 F 98 F Pulse Rate 72 67 70 Respiratory Rate 18 16 16 Blood Pressure 106/81 119/71 132/85 Pulse Oximetry 100 100 100 Oxygen Delivery Method Room Air Room Air Room Air 02/26/24 09:07 Temperature 98 F Pulse Rate 70 Respiratory Rate 16 Blood Pressure 132/85 Pulse Oximetry 100 Oxygen Delivery Method Room Air BMI result Body Mass Index 23.0 Appearance: Alert.?Oriented to person, place and time. No acute distress.?Normal affect.?? ENT: Mildly erythematous posterior oropharynx. Uvula midline. No trismus. No drooling. TM normal bilaterally. Neck: Normal inspection.? Neck supple.??No cervical adenopathy CVS: Heart sounds normal. Normal heart rate and rhythm.? Pulses normal.?? Respiratory: No respiratory distress.? Lung sounds clear to auscultation bilaterally?? Abdomen: Soft and non-tender. No rebound tenderness at McBurney's point. Negative psoas sign. Negative Rovsing sign. Negative Rodriguez sign. No CVAT. Normoactive bowel sounds. No pulsatile mass.?? Skin: Skin warm and dry.? Normal skin color.? Extremities: No lower extremity edema.? Neuro: Moves all extremities spontaneously. Sensation intact bilaterally. Ambulates with normal steady gait. Medications Administered Discontinued Medications Generic Name Dose Route Start Last Admin Trade Name Freq PRN Reason Stop Dose Admin Ketorolac Tromethamine 15 mg 02/26/24 07:18 02/26/24 07:38 Ketorolac Tromethamine 15 Mg/Ml Vial IM 02/26/24 07:19 15 mg ONCE ONE Administration Ondansetron HCl 4 mg 02/26/24 07:18 02/26/24 07:37 Ondansetron Odt 4 Mg Tab.Rapdis TRANSLINGU 02/26/24 07:19 4 mg ONCE ONE Administration Medical Decision Making Medical Decision Making [facility] Narrative: Patient is a 53-year-old male who presents to the emergency department for evaluation of multiple viral type symptoms including cough, sore throat, fevers and chills, myalgias, intermittent headache, nausea diarrhea and cramping abdominal pain. Reviewed laboratory indices obtained prior to my assumption of care CBC is without leukocytosis anemia or thrombocytopenia. No electrolyte derangement. No MICHELLE. LFTs and lipase are within normal range. He is noted to be influenza A positive, influenza B/RSV/COVID-19-. 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 Abdominal examination is benign, overall without signs of systemic toxicity found to be afebrile without tachycardia, no hypotension. Examination not consistent with acute abdomen, no peritoneal signs; no tenderness upon light palpation, no rebound tenderness, no guarding, no percussive tenderness. I suspect that the pain to his left abdomen described as a cramping sensation is consistent with viral gastrointestinal illness. No abdominal tenderness upon palpation, negative Rodriguez sign, unlikely acute cholecystitis, choledocholithiasis, no fever or jaundice to suggest acute cholangitis, may possibly be biliary colic secondary to cholelithiasis. Denies associated acid reflux, no tenderness upon palpation over the epigastrium or left upper quadrant to suggest gastritis, no recent hematemesis history less likely to suggest PUD. Denies excessive alcohol consumption, history of diabetes, lower suspicion acute pancreatitis. No rebound tenderness at McBurney's point, rigidity, guarding to suggest acute appendicitis. No tenderness of the left lower quadrant, constipation, hematochezia or melena lower suspicion of diverticulitis or GI bleed. No appreciable hernia to suggest strangulation/incarceration. Lower suspicion for bowel obstruction. No associated genitourinary symptoms to suggest UTI/pyelonephritis, renal colic, hydronephrosis. However will obtain urinalysis for further evaluation. Who received Zofran for nausea, as well as Toradol and pending re-evaluation/p.o. trial. Differential Diagnosis Differential Diagnoses: The differential diagnosis associated with the presentation includes (See narrative above) Admission/Observation Consideration of admission/observation: Escalation of care including admission/observation considered (See narrative above ) Lab Data MDM Lab Attestation statement: I reviewed the patient's lab results. CBC is without leukocytosis anemia or thrombocytopenia. No electrolyte derangement. No MICHELLE. Viral serologies are negative. Group a strep testing is negative. 02/26/24 01:32 02/26/24 01:32 Labs: Lab Results 02/26/24 02/26/24 Range/Units 01:32 07:47 WBC 9.8 (4.8-10.8) X10*3/uL RBC 5.28 (4.60-5.80) X10*6/uL Hgb 14.7 (14.0-18.0) g/dl Hct 44.7 (42.0-52.0) % MCV 84.7 (80.0-98.0) fL MCH 27.8 (27.0-33.0) pg MCHC 32.9 (31.0-36.0) g/dl RDW 12.5 (11.0-16.0) % Plt Count 210 (160-400) X10*3/uL MPV 10.5 (9.4-12.4) fL Immature Gran % (Auto) 0.6 H (0.0-0.4) % Neut % (Auto) 85.5 H (45-73) % Lymph % (Auto) 4.5 L (20-40) % [place] % (Auto) 7.4 (2-11) % Eos % (Auto) 1.7 (0-4) % Baso % (Auto) 0.3 (0-2) % Lymph # (Auto) 0.4 L (1.2-4.9) X10*3/uL [place] # (Auto) 0.7 (0.1-1.2) X10*3/uL Eos # (Auto) 0.2 (0.0-0.4) X10*3/uL Baso # (Auto) 0.0 (0.0-0.2) X10*3/uL Abs Immat Gran (auto) 0.06 H (0.00-0.03) X10*3/uL Absolute Neuts (auto) 8.4 H (2.0-8.3) x10*3/uL Absolute Nucleated RBC 0.000 (0.0-0.012) X10*3/uL Nucleated RBC % (auto) 0.0 (0.0-0.2) /100WBC Sodium 141 (135-145) mmol/L Potassium 4.4 (3.3-5.1) mmol/L Chloride 108 (96-108) mmol/L Carbon Dioxide 24 (22-29) mmol/L Anion Gap 13 (12-20) BUN 21 H (9-16) mg/dL Creatinine 0.94 (0.5-1.4) mg/dL Estim Creat Clear Calc 68.5 Estimated GFR > 60 Random Glucose 105 (60-115) mg/dL Calcium 9.6 (8.4-10.2) mg/dL Total Bilirubin 0.3 (0.0-1.0) mg/dL AST 29 (5-37) U/L ALT 22 (0-40) U/L Alkaline Phosphatase 78 (39-117) U/L Total Protein 7.8 (6.5-8.0) g/dL Albumin 4.3 (3.5-5.0) g/dL Lipase 32 (8-78) U/L Urine Color Yellow Urine Appearance Clear Urine pH 6.0 (5.0-9.0) Ur Specific [place] >= 1.030 H (1.005-1.025) Urine Protein Trace (Neg-Trace) mg/dL Urine Glucose (UA) Negative (Negative) mg/dL Urine Ketones 40 (Negative) mg/dL Urine Blood Trace (Negative) Urine Nitrite Negative (Negative) Ur Leukocyte Esterase Negative (Negative) Urine RBC 3-5 H (0-2) /HPF Urine WBC 0-5 (0-5) /HPF Ur Squamous Epith Cells 0-2 (0-2) /HPF Urine Bacteria None Seen (None Seen) Hyaline Casts 3-5 (0-2) /LPF Influenza Type A (PCR) POSITIVE A (Negative) Influenza Type B (PCR) NEGATIVE (Negative) RSV RNA Qual (PCR) NEGATIVE (Negative) SARS-CoV-2 RNA (RT-PCR) NEGATIVE (Negative) S. pyogenes GrpA ANGEL Negative (Negative) External Record Review External record reviewed: Outpatient record Discharge Plan Discharge Clinical Impression: Influenza A Patient Disposition: Home, Self-Care Instructions: Influenza (ED) Additional Instructions: Be sure to rest, stay well hydrated drinking plenty of fluids, eat small frequent meals. Tylenol/ibuprofen can be used as needed for fever/pain. You can use your previously prescribed Zofran as needed for nausea. Umfp-gfb-vfcenyk cold medications may be helpful as well for symptoms. Saline nasal spray, humidifier may be helpful for nasal congestion. You may return to the emergency department with any new or worsening symptoms or concerns. Follow-up with your primary care provider as needed. Should remain out of school/ work until symptoms have resolved and have been without a fever for 24 hours without the use of Tylenol or ibuprofen. Prescriptions: No Action ibuprofen 600 mg tablet 600 mg PO Q6H PRN (Reason: pain) Qty: 20 0RF benzonatate 100 mg capsule 100 mg PO BID-TID PRN (Reason: cough) Qty: 30 0RF ttsngqryufxc-dfjwpcwon-maqumzm 6.25-5-10 mg/5 mL syrup 5 ml PO Q4-6H PRN (Reason: flu symptoms) Qty: 118 0RF Referrals: Jarrett Ochoa MD [Primary Care Provider] - Interventions: ED Discharge Assessment Last Done: 02/26/24 09:07 Discharge Date/Time: 02/26/24 09:11 Print Language: Guatemalan
[2024-02-26 07:56] VITALS: BP 132/85; PULSE 70; RESP 16; O2SAT 100
[2024-02-26 07:59] LABS: Appearance Urine Clear; Color Urine Yellow; Glucose Urine UA Negative (Negative); Leukocyte Esterase Urine Negative (Negative); Nitrite Urine Negative (Negative); Specific Gravity - Urine >= 1.030 (1.005-1.025); UMIC TRIGGER UACC YES; Urine Blood Trace (Negative); Urine Ketones 40 mg/dL (Negative); Urine Protein Trace mg/dL (Neg-Trace)
[2024-02-26 08:04] LABS: Bacteria Urine None Seen (None Seen); Squamous Epithelial Cell Urine 0-2 /HPF (0-2); WBC Urine 0-5 /HPF (0-5)
[2024-02-26 09:07] VITALS: BP 132/85; PULSE 70; RESP 16; TEMP 36.6; O2SAT 100
== END 2024-02-26 09:11 | disposition home or self-care (01) ==
PROVIDERS: Nurse Practitioner Family; Emergency Provider Emergency Medicine; PCP Internal Medicine
DX: J10.1 Influenza due to other identified influenza virus with other respiratory manifestations (principal); R11.2 Nausea with vomiting, unspecified; R05.9 Cough, unspecified; Z03.818 Encounter for observation for suspected exposure to other biological agents ruled out
CPT/HCPCS: 0241U; 80053; 81001; 83690; 85025; 87651; 96372; 99283; 99284; J1885

== ENCOUNTER 2024-03-07 08:32 | Outpatient (REF) | payer OTHER, SELFPAY ==
--- NOTE | ~2024-03-07 | XR_ITS ---
EXAMINATION: XR WRIST, LEFT CLINICAL INFORMATION: OSTEOARTHRITIS ; pain in wrist for several months. COMPARISON: None available. TECHNIQUE: PA, lateral, oblique, and scaphoid views of the left wrist. FINDINGS: No fracture, dislocation, or suspicious bone lesion. Normal alignment. Normal bone mineralization. Mild narrowing of the radiocarpal joint. Minimal blunting of the ulnar styloid, nonspecific. Otherwise, no significant arthritic changes in the imaged hand and wrist. No erosions or evidence of erosive arthropathy. Soft tissues appear normal. XR/XR wrist LT 2V IMPRESSION: 1. No acute bony abnormalities. 2. Minimal joint space narrowing radiocarpal joint. Electronically signed by: Corey Montesinos MD 03/07/2024 09:35 AM DAT
--- OUTSIDE RECORDS SUMMARY | 2024-03-07 12:45 | XMS_ITS | Clinical Summary ---
Author Organization [facility] [address] [facility] Address [address] [place] [address] Phone Care Team Providers Care Mix Crusher Operator Name Role Phone Jarrett Ochoa MD Primary Care Provider Allergies Active Allergy Reactions Criticality Noted Date Comments Ciprofloxacin 03/26/2022 Dexamethasone 03/26/2022 Levofloxacin 03/26/2022 Other Reaction(s): Hives/Urticaria, Rash/Dermatitis Penicillins 01/18/2010 Medications Medication Sig Dispensed Refills Start Date End Date Status meclizine (ANTIVERT) 12.5 mg tablet Take 1 Tablet by mouth daily as needed (vertigo). 12/15/2022 Active ketoconazole-hydroc ortisone (Pheyo) 2-2.5 % cream Apply 1 Dose topically 2 times daily. 10/30/2022 Active pantoprazole (PROTONIX) 20 mg EC tablet TAKE 1 TABLET BY MOUTH DAILY 90 tablet 3 01/29/2024 Active SUMAtriptan (IMITREX) 50 mg tablet Take 1 tablet (50 mg total) by mouth 1 (one) time if needed for migraine. May repeat after 2 hours. 30 tablet 3 02/22/2024 02/21/2025 Active naproxen (NAPROSYN) 500 mg tablet Take 1 tablet (500 mg total) by mouth 2 (two) times a day if needed for headaches (pain). 60 tablet 02/22/2024 05/22/2024 Active metoclopramide (REGLAN) 10 mg tablet Take 1 tablet (10 mg total) by mouth 4 (four) times a day if needed (nausea). 30 tablet 3 02/22/2024 04/22/2024 Active propranoloL (INDERAL) 20 mg tablet Take 1 tablet (20 mg total) by mouth 2 (two) times a day. 180 each 1 02/22/2024 Active Active Problems No known active problems Encounters Date Type Department Care Team Description 02/22/2024 10:00 AM EST Office Visit Adult Medicine [address] [address] Jarrett Ochoa MD Acute nonintractable headache, unspecified headache type (Primary Dx); Localized osteoarthritis of wrist; Nausea and vomiting, unspecified vomiting type from Last 3 Months Immunizations Name Administration Dates Next Due Influenza trivalent, 0.5mL, preservative free (Fluarix; FluLaval; Fluzone) ages 6mo and older (Afluria) 3 years and older 11/19/2020,11/22/2019,11/24/2018,2017 Moderna SARS-CoV-2 COVID-19, mRNA, LNP-S, preservative free 01/19/2021 Surgical History Surgery Date Site/Laterality Comments OTHER SURGICAL HISTORY PROCEDURE: HISTORY OTHER; COMMENT: EGD in 05/2017. Was normal. OTHER SURGICAL HISTORY PROCEDURE: HISTORY OTHER; COMMENT: left breast mass excisional biopsy in 2015 OTHER SURGICAL HISTORY PROCEDURE: HISTORY OTHER; COMMENT: Debridement of right elbow lateral epicondylitis in 03/2020 HERNIA REPAIR Right PROCEDURE: LAPAROSCOPY, INGUINAL HERNIA REPAIR Medical History Medical History Date Comments Low back pain DX:Low back pain Chronic headaches DX:Chronic hea daches Lateral epicondylitis, right elbow DX:Lateral epicondylitis, right elbow Subareolar mass of left breast D X:Subareolar mass of left breast Subareolar mass of right breast DX:Subareolar mass of right breast Lateral epicondylitis of right elbow DX:Lateral epicondylitis of right elbow Family History Medical History Relation Name Comments Asthma Aunt Alcohol/Drug Brother Depression Brother Hypertension Maternal Grandfather Other: heart Maternal Grandfather Liver disease Maternal Grandmother Throat cancer Maternal Grandmother Glaucoma Mother Seizures Mother Relation Name Status Comments Aunt Brother Maternal Grandfather Alive Maternal Grandmother Alive Mother Paternal Grandfather Alive Paternal Grandmother Alive Social History Tobacco Use Types Packs/Day Years Used Date Smoking Tobacco: Unknown Smokeless Tobacco: Never Tobacco Cessation:Counseling Given: Not Answered Alcohol Use Standard Drinks/Week Comments Not Currently 0 (1 standard drink = 0.6 oz pur e alcohol) Sex and Gender Information Value Date Recorded Sex Assigned at Not on file Gender Identity Not on file Sexual Orientation Not on file Job Start Date Occupation Industry Not on file Not on file Not on file Obstetrics History Last Filed Vital Signs Vital Sign Reading Time Taken Comments Blood Pressure 106/50 02/22/2024 10:01 AM EST Pulse 58 02/22/2024 10:01 AM EST Temperature 36.6 ??C (97.8 ??F) 02/22/2024 10:[address] Respiratory Rate 16 02/22/2024 10:01 AM EST Oxygen Saturation - - Inhaled Oxygen Concentration - - Weight 57.2 kg (126 lb) 02/22/2024 10:01 AM EST Height 160 cm (5' 3 ) 02/22/2024 10:01 AM EST Body Mass Index 22.32 02/22/2024 10:01 AM EST Plan of Treatment Health Maintenance Due Date Last Done Comments DTaP,Tdap,and Td Vaccines (1 - Tdap) 12/03/1987 Hepatitis B Vaccines (1 of 3 - 19+ 3-dose series) 12/03/1987 Zoster Vaccines (1 of 2) 2018 Cholesterol Screening (Lipid Panel) 01/22/2022 Depression Screening 01/22/2022 HIV Screening 01/22/2022 Hepatitis C Screening 01/22/2022 Social Influencers of Health Screening 01/22/2022 COVID-19 Vaccine ( season) 2023 07/11/2021, 01/19/2021, 03/14/2020, Additional history exists Influenza Vaccine (#1) 2023 3, 11/20/2021, 11/22/2020, Additional history exists Colorectal Cancer Screening: Colonoscopy 06/09/2032 06/09/2022 HIB Vaccines Aged Out No longer eligi ble based on patient's age to complete this topic HPV Vaccines Aged Out No longer eligi ble based on patient's age to complete this topic Hepatitis A Vaccines Aged Out No long er eligible based on patient's age to complete this topic IPV Vaccines Aged Out No longer eligi ble based on patient's age to complete this topic MMR Vaccines Aged Out No longer eligi ble based on patient's age to complete this topic Meningococcal ACWY Vaccine Aged Out N o longer eligible based on patient's age to complete this topic Pneumococcal Vaccine: Pediatrics (0 to 5 Years) and At-Risk Patients (6 to 64 Years) Aged Out No longer eligible based on patient's age to complete this topic RSV Immunization Patients Under 20 months Aged Out No longer eligible based on patient's age to complete this topic Varicella Vaccines Aged Out No longer eligible based on patient's age to complete this topic Procedures Procedure Name Priority Date/Time Associated Diagnosis Comments COLONOSCOPY Routine 06/09/2022 from Last 3 Months or Most Recently Relevant to Health Maintenance Results * Colonoscopy (06/09/2022) Colonoscopy no interpretation , abstracted Anatomical Region Laterality Modality Other Historical Provider MD HARPAL Romero from Last 3 Months or Most Recently Relevant to Health Maintenance Care Teams Mix Crusher Operator Relationship Specialty Start Date End Date Jarrett Ochoa MD [address] [place] [address] PCP - General 03/03/22
--- OUTSIDE RECORDS SUMMARY | 2024-03-07 12:45 | XMS_ITS | Patient Health Record ---
Author Organization [facility] Address [address] [place] [address] Care Team Providers Care Dental Hygienist Name Role Phone Ros Gross MD Primary Care Provider Ze Guerrero [phone] ALLERGIES Allergen (clinical drug ingredient) Drug/Non Drug Allergy documented on EMR Reaction Allergy Type Onset Date Status Penicillin Rash/Pruritus Drug Allergy Ac tive REASON FOR REFERRAL No Information IMMUNIZATIONS Vaccine Route Administration Date Status Comme nts Influenza Unknown 11/20/2021 Administered SOCIAL HISTORY Tobacco Use: Social History Observation Description Date Details (start date - stop date) Never Smoker NA - NA Sex Assigned At : Social History Observation Description Sex Assigned At Unknown Tobacco Use/Smoking Question Answer Notes Patient is a nonsmoker Alcohol Screen Question Answer Notes Did you have a drink contain ing alcohol in the past year? Yes How often did you have a dri nk containing alcohol in the past year? Monthly or less (1 point) How many drinks did you have on a typical day when you were drinking in the past year? 1 or 2 drinks (0 point) How often did you have 6 or more drinks on one occasion in the past year? Never (0 point) Points 1 Interpretation Negative PROBLEMS Problem Type ICD Code Onset Dates Problem Status W/U Status Risk SNOMED Code Notes Problem Screen for colon cancer (Z12.11) Active confirmed 582209746 Problem Pre-procedural examination (Z01.818) Active confirmed [id number] PLAN OF TREATMENT Future Test Test Name Order Date COLONOSCOPY 04/16/2022 Insurance Providers Payer Name Payer Address Payer Phone Subscriber Number Group Number Insured Name Patient Relationship to Insured Coverage Start Date Coverage End Date [employer] [address] [address] [place] [address] [id number] JORGE TOÑA Self - patient is the insured MEDICAL (GENERAL) HISTORY Medical History History ICD Code Denies NM,DM,CVA,Lung disease,renal dise ase Surgical History Surgery Date(Month/Year) Right inguinal hernia Tonsils Tendon repair in elbow right Tissue mass on both sides of chest remov ed
--- OUTSIDE RECORDS SUMMARY | 2024-03-07 12:45 | XMS_ITS | Encounter Summary ---
Author [place] [address] Care Team Providers Care Rouge Miller Name Role Phone Jarrett Ochoa MD Primary Care Provider Reason for Referral * Consultation (Routine) - Pending Review Specialty Diagnoses / Procedures Referred By Contac t Referred To Contact Neurology Diagnoses Acute nonintractable headache, unspecified headache type Jarrett Ochoa MD [address] [place] [address] Referral ID Status Reason Start Date Expiration Date Visits Requested Visits Authorized [id number] Pending Review Specialty Services Required 02/22/2024 02/21/2025 1 1 * Consultation (Routine) - Authorized Specialty Diagnoses / Procedures Referred By Contac t Referred To Contact Orthopaedics / Orthopaedic Surgery Diagnoses Localized osteoarthritis of wrist Jarrett Ochoa MD [address] [place] [address] [facility] Orthopedic Surgery [address] [address] Referral ID Status Reason Start Date Expiration Date Visits Requested Visits Authorized [id number] Authorized Specialty Services Required 02/22/2024 02/21/2025 1 1 Reason for Visit * Reason Comments Vertigo Headaches x2.5 weeks Encounter Details Date Type Department Care Team (Late st Contact Info) Description 02/22/2024 10:00 AM EST Office Visit Adult Medicine [facility] [address] [place] [address] Jarrett Ochoa MD [address] [place] [address] Acute nonintractable headache, unspecified headache type (Primary Dx); Localized osteoarthritis of wrist; Nausea and vomiting, unspecified vomiting type Social History Tobacco Use Types Packs/Day Years [...] file Not on file Not on file documented as of this encounter Last Filed Vital Signs Vital Sign Reading [...] Mass Index 22.32 02/22/2024 10:01 AM EST documented in this encounter Ordered Prescriptions Prescription Sig Dispensed Refills Start Date End Da te propranoloL (INDERAL) 20 mg tablet Take 1 tablet (20 mg total) by mouth 2 (two) times a day. 180 each 1 02/22/2024 metoclopramide (REGLAN) 10 mg tablet Take 1 tablet (10 mg total) by mouth 4 (four) times a day if needed (nausea). 30 tablet 3 02/22/2024 04/22/2024 naproxen (NAPROSYN) 500 mg tablet Take 1 tablet (500 mg total) by mouth 2 (two) times a day if needed for headaches (pain). 60 tablet 02/22/2024 05/22/2024 SUMAtriptan (IMITREX) 50 mg tablet Take 1 tablet (50 mg total) by mouth 1 (one) time if needed for migraine. May repeat after 2 hours. 30 tablet 3 02/22/2024 02/21/2025 documented in this encounter Progress Notes * Jarrett Ochoa MD - 02/22/2024 10:00 AM EST SUBJECTIVE: Milan Antonio is a 53 y.o. male who presents today for Chief Complaint Patient presents with Vertigo Headaches x2.5 weeks HPI: Patient presenting for worsening headache for the past 2 and half weeks. 2 days ago started having nausea and vomiting as well. Patient has history of migraines but states he has had severe headachesfor the past 2 and half weeks. No vision changes. No muscle weakness or numbness. 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 Current Meds: Current Outpatient Medications: ketoconazole-hydrocortisone (Pheyo) 2-2.5 % cream, Apply 1 Dose topically 2 times daily., Disp: , Rfl: meclizine (ANTIVERT) 12.5 mg tablet, Take 1 Tablet by mouth daily as needed (vertigo)., Disp: , Rfl: pantoprazole (PROTONIX) 20 mg EC tablet, TAKE 1 TABLET BY MOUTH DAILY, Disp: 90 tablet, Rfl: 3 metoclopramide (REGLAN) 10 mg tablet, Take 1 tablet (10 mg total) by mouth 4 (four) times a day if needed (nausea)., Disp: 30 tablet, Rfl: 3 naproxen (NAPROSYN) 500 mg tablet, Take 1 tablet (500 mg total) by mouth 2 (two) times a day if needed for headaches (pain)., Disp: 60 tablet, Rfl: 0 propranoloL (INDERAL) 20 mg tablet, Take 1 tablet (20 mg total) by mouth 2 (two) times a day., Disp: 180 each, Rfl: 1 SUMAtriptan (IMITREX) 50 mg tablet, Take 1 tablet (50 mg total) by mouth 1 (one) time if needed formigraine. May repeat after 2 hours., Disp: 30 tablet, Rfl: 3 Allergies: Allergies Allergen Reactions Ciprofloxacin Dexamethasone Levofloxacin Other Reaction(s): Hives/Urticaria, Rash/Dermatitis Penicillins Immunizations: Immunization History Administered Date(s) Administered Influenza trivalent, 0.5mL, preservative free (Fluarix; FluLaval; Fluzone) ages 6mo and older (Afluria) 3 years and older 11/09/2017, 11/24/2018, 11/22/2019, 11/19/2020 Moderna SARS-CoV-2 COVID-19, mRNA, LNP-S, preservative free 02/15/2020, 03/14/2020, 01/19/2021, 07/11/2021 Active Problems: There is no problem list on file for this patient. HISTORY: Past Medical History: Diagnosis Date Chronic headaches DX:Chronic headaches Lateral epicondylitis of right elbow DX:Lateral epicondylitis of right elbow Lateral epicondylitis, right elbow DX:Lateral epicondylitis, right elbow Low back pain DX:Low back pain Subareolar mass of left breast DX:Subareolar mass of left breast Subareolar mass of right breast DX:Subareolar mass of right breast Past Surgical History: Procedure Laterality Date HERNIA REPAIR Right PROCEDURE: LAPAROSCOPY, INGUINAL HERNIA REPAIR OTHER SURGICAL HISTORY PROCEDURE: HISTORY OTHER; COMMENT: EGD in 05/2017. Was normal. OTHER SURGICAL HISTORY PROCEDURE: HISTORY OTHER; COMMENT: left breast mass excisional biopsy in 2016 OTHER SURGICAL HISTORY PROCEDURE: HISTORY OTHER; COMMENT: Debridement of right elbow lateral epicondylitis in 03/2020 Family History Problem Relation Name Age of Onset Seizures Mother Glaucoma Mother Depression Brother Alcohol/Drug Brother Asthma Aunt Hypertension Maternal Grandfather Other (Other: heart) Maternal Grandfather Liver disease Maternal Grandmother Throat cancer Maternal Grandmother Social History Socioeconomic History Marital status: Spouse name: Not on file Number of children: Not on file Years of education: Not on file Highest education level: Not on file Occupational History Not on file Tobacco Use Smoking status: Unknown Smokeless tobacco: Never Substance and Sexual Activity Alcohol use: Not Currently Drug use: Never Sexual activity: Not on file Other Topics Concern Not on file Social History Narrative Not on file ROS: GENERAL: Negative for malaise, significant weight loss and fever HEENT: No changes in hearing or vision. No nosebleeds or other nasal problems NECK: Negative for lumps, goiter, pain, and significant neck swelling RESPIRATORY: No cough, wheezing or shortness of breath CARDIOVASCULAR: Negative for chest pain, leg swelling and palpitations GI: Negative for abdominal discomfort, changes in bowel habits, blood in stool or black stools : Negative for dysuria, frequency, and incontinence VITAL SIGNS Vitals: 02/22/24 1001 BP: 106/50 Pulse: 58 Resp: 16 Temp: 36.6 ??C (97.8 ??F) Weight: 57.2 kg (126 lb) Height: 1.6 m (63 ) Body mass index is 22.32 kg/m??. Body surface area is 1.59 meters squared. PHYSICAL EXAM: Blood pressure 106/50, pulse 58, temperature 36.6 ??C (97.8 ??F), resp. rate 16, height 1.6 m (63 ), weight 57.2 kg (126 lb). Body mass index is 22.32 kg/m??. Plan is deferred until next visit APPEARANCE: Alert and in no acute distress EYES: PERRLA, conjunctiva and sclera normal EARS: External ears normal. Canals clear. TMs normal. NOSE/SINUS: Nares normal. Septum midline. Mucosa normal. No drainage or sinus tenderness MOUTH/THROAT: no erythema, lesions, or exudates NECK: Neck supple, no adenopathy, thyroid symmetric and of normal size HEART: RRR with normal S1 and S2, no murmurs, no gallops, no JVD appreciated CHEST: non-tender LUNG: clear to auscultation bilaterally ABDOMEN: Bowel sounds normoactive, no bruits and soft, non-tender, without organomegaly or palpablemasses EXTREMITIES: Extremities warm and well perfused without clubbing, cyanosis, or edema NEURO: Awake, alert and oriented x 3, Cranial nerves II-XII grossly intact, reflexes symmetrical, Normal gait, No involuntary motions., and Negative findings: speech normal, gait, including heel, toe, and tandem walking normal, Romberg negative, muscle tone normal, rapid alternating movements normal, finger to nose normal, vibratory sensation normal, reflexes normal and symmetric, and plantar response downgoing bilaterally SKIN: Skin color, texture, turgor normal. No rashes or lesions. PSYCH: Stable mood. Denies SI/HI No results found for this or any previous visit (from the past 4464 hour(s)). ASSESSMENT/PLAN: Milan was seen today for vertigo. Diagnoses and all orders for this visit: Acute nonintractable headache, unspecified headache type (Primary) - Ambulatory referral to Neurology; Future - CBC and differential; Future - Comprehensive metabolic panel; Future Localized osteoarthritis of wrist - Ambulatory referral to Orthopedic Surgery; Future - XR Wrist 3+ Views Right; Future - XR Wrist 3+ Views Right Nausea and vomiting, unspecified vomiting type Other orders - SUMAtriptan (IMITREX) 50 mg tablet; Take 1 tablet (50 mg total) by mouth 1 (one) time if needed for migraine. May repeat after 2 hours. - naproxen (NAPROSYN) 500 mg tablet; Take 1 tablet (500 mg total) by mouth 2 (two) times a day if needed for headaches (pain). - metoclopramide (REGLAN) 10 mg tablet; Take 1 tablet (10 mg total) by mouth 4 (four) times a day if needed (nausea). - propranoloL (INDERAL) 20 mg tablet; Take 1 tablet (20 mg total) by mouth 2 (two) times a day. Plan Patient history of migraines worsening headache. Will treat him with naproxen and sumatriptan as needed as well as daily propranolol. Reglan as needed for nausea. Follow-up with neurology, referral placed. Check labs. Patient with recent worsening pain in the left wrist. History of corticosteroid injection for wristosteoarthritis in the past roughly 8 years ago. Will obtain repeat x-ray and follow-up with orthopedics. No follow-ups on file. Orders Placed This Encounter Procedures XR Wrist 3+ Views Right CBC and differential Comprehensive metabolic panel Ambulatory referral to Orthopedic Surgery Ambulatory referral to Neurology No results found for this or any previous visit (from the past 672 hour(s)). Jarrett Ochoa MD documented in this encounter Plan of Treatment Scheduled Orders Name Type Priority Associated Diagnoses Orde r Schedule XR Wrist 3+ Views Right Imaging Routine Localized osteoarthritis of wrist Expected: 02/22/2024, Expires: 02/21/2025 CBC and differential Lab Routine Acute nonintractable headache, unspecified headache type 1 Occurrences starting 02/22/2024 until 02/21/2025 Comprehensive metabolic panel Lab Routine Acute nonintractable headache, unspecified headache type 1 Occurrences starting 02/22/2024 until 02/21/2025 Scheduled Referrals Name Type Priority Associated Diagnoses Orde r Schedule Ambulatory referral to Orthopedic Surgery Outpatient Referral Routine Localized osteoarthritis of wrist 1 Occurrences starting 02/22/2024 until 02/21/2025 Ambulatory referral to Neurology Outpatient Referral Routine Acute nonintractable headache, unspecified headache type 1 Occurrences starting 02/22/2024 until 02/21/2025 documented as of this encounter Visit Diagnoses Diagnosis Acute nonintractable headache, unspecified headache type- Primary Localized osteoarthritis of wrist Nausea and vomiting, unspecified vomiting type documented in this encounter Care Teams Rouge Miller Relationship Specialty Start Date End Date Jarrett Ochoa MD [address] [place] [address] PCP - General 03/03/22 documented as of this encounter
== END 2024-03-07 08:33 | disposition home or self-care (01) ==
LOC: HO.XRAY 08:32
PROVIDERS: PCP Internal Medicine; Visit Provider Internal Medicine
DX: M19.032 Primary osteoarthritis, left wrist (principal)
CPT/HCPCS: 73100

== ENCOUNTER → 2024-03-07 08:54 | Outpatient (BNV) | payer OTHER, SELFPAY | PROVIDERS: PCP Internal Medicine; Visit Provider Radiology Diagnostic Radiology | DX: M25.532 Pain in left wrist (principal) | CPT/HCPCS: 73100 ==

== ENCOUNTER 2024-06-10 08:00 | Outpatient (RCR) | payer OTHER, SELFPAY | END 2024-07-28 15:43 | disposition home or self-care (01) | LOC: HO.PT 08:00 | PROVIDERS: PCP Internal Medicine; Visit Provider Internal Medicine | DX: M54.50 Low back pain, unspecified (principal); G89.29 Other chronic pain | CPT/HCPCS: 97110; 97161; 97530 ==

== ENCOUNTER 2024-11-03 18:40 | Inpatient (IN) | payer OTHER, SELFPAY ==
--- NOTE | 2024-11-03 | ECG_ITS ---
Test Reason : cp Blood Pressure : */* mmHG Vent. Rate : 59 BPM Atrial Rate : 59 BPM P-R Int : 142 ms QRS Dur : 78 ms QT Int : 364 ms P-R-T Axes : 57 46 34 degrees QTcB Int : 360 ms Sinus bradycardia Otherwise normal ECG No previous ECGs available Referred By: Generic ED Physician Electronically Signed By: Fransisco Freire
--- NOTE | ~2024-11-03 | CT_ITS ---
CLINICAL HISTORY: pancreatits CT abdomen and pelvis with contrast Comparison: CT - CT ABDOMEN PELVIS W IV CON - 11/05/24 09:17 EDT Findings: Mild bibasilar atelectasis suggested. The liver, gallbladder, spleen, adrenal glands, kidneys, ureters and bladder are unremarkable. Mild stranding about the pancreas. No peripancreatic fluid collection or pancreatic bed gas. Small volume free fluid in the pelvis. No bowel obstruction or free air. No acute osseous finding. Impression: Findings suggest mild pancreatitis. This document has been electronically signed by: Antonio Smith MD on 11/05/2024 10:15:44
--- NOTE | ~2024-11-03 | CT_ITS ---
CLINICAL HISTORY: dissection rule out CT angiography chest, abdomen and pelvis using contrast. 3-D postprocessing Comparison: CR - XR CHEST 2V - 11/03/24 20:43 EDT Findings: No pulmonary embolism. No thoracic aorta aneurysm or dissection. Heart size within normal limits. No focal pulmonary consolidation, pneumothorax, or pleural effusion. Subtle edema identified adjacent to the pancreatic tail. No peripancreatic fluid collections are identified. The gallbladder and solid organs are otherwise within normal limits for appearance. No hydronephrosis or hydroureter. No dilated loops of bowel or evidence for bowel obstruction. The abdominal aorta appears normal in course without focal aneurysmal dilation. No abdominal aorta dissection. The celiac artery and its major branches appear patent. The SMA appears patent. The ALEX also appears patent. The bilateral renal arteries appear patent. The bilateral lower extremity arterial inflow vessels appear patent. No bladder wall thickening. Scattered calcifications are present within the prostate gland. Tiny, fat containing left inguinal hernia. Nondilated tubular structure identified in the retrocecal region at the right lower abdominal quadrant, possibly consistent with a nondilated appendix. No acute fractures. Impression: 1. No acute abnormality of the aorta. No aortic aneurysm or dissection demonstrated. 2. Negative for pulmonary embolism. 3. No acute cardiopulmonary process. No focal pulmonary consolidation, pneumothorax, or pleural effusion. 4. Subtle edema identified adjacent to the pancreatic tail, suggesting acute pancreatitis. Recommend clinical correlation with laboratory values. This document has been electronically signed by: Willy Masters MD on 11/04/2024 01:31:25
--- NOTE | ~2024-11-03 | XR_ITS ---
CLINICAL HISTORY: Mid back pain 3 views thoracic spine Comparison: None provided Findings: Normal vertebral body alignment. No acute fractures or dislocation. Mild degenerative changes. IMPRESSION: No acute findings. Mild degenerative changes. This document has been electronically signed by: Antonio Smith MD on 11/03/2024 21:12:48
--- NOTE | ~2024-11-03 | XR_ITS ---
CLINICAL HISTORY: cough 2 views chest Comparison: None Findings: Cardiac and mediastinal contours are normal. Mild interstitial prominence with scattered peribronchial thickening. No focal consolidation. No effusion. No pneumothorax. No acute osseous finding. Impression: Mild interstitial prominence with scattered peribronchial thickening. No focal consolidation. This document has been electronically signed by: Antonio Smith MD on 11/03/2024 21:19:49
[2024-11-03 19:18] VITALS: BP 140/87; PULSE 60; RESP 18; TEMP 36.5; O2SAT 98; BMI 23.8
--- NOTE | 2024-11-03 19:31 | ED_ITS ---
HPI - Chest Pain General Chief Complaint: Chest Pain Stated Complaint: CP and back pain Related Data Previous Rx's ?Medication ?Instructions ?Recorded ibuprofen 600 mg tablet 600 mg PO Q6H PRN pain #20 t abs 07/16/20 benzonatate 100 mg capsule 100 mg PO BID-TID PRN cough #30 02/15/22 caps vyhwgljeclbu-dbfiykavxsqff-tadgmhw 5 ml PO Q4-6H PRN f manjinder symptoms 02/15/22 6.25 mg-5 mg-10 mg/5 mL oral syrup #118 mL Allergies Allergy/AdvReac Type Severity Reaction Status Date / Time [facility] Allergy Itching Verified 11/03/24 19:22 Penicillins Allergy Itching Verified 11/03/24 19:22 [facility] Past Medical History Surgical History H/O excision of mass H/O elbow surgery Hx of tonsillectomy H/O right inguinal hernia repair Social History Social History Alcohol intake: current Alcohol intake frequency: holidays/special occasions only Patient Tobacco Use Status: Never used Tobacco Substance Use Type: Marijuana Do you have a plan to hurt others: No Plan Current occupational status: employed Current occupation: [employer] employee, rt handed Physical Exam Vital Signs: Vital Signs: Last Vital Signs Temp 97.7 F 11/03/24 19:18 Pulse 60 11/03/24 19:18 Resp 18 11/03/24 19:18 BP 140/87 H 11/03/24 19:18 Pulse Ox 98 11/03/24 19:18 O2 Del Method Room Air 11/03/24 19:18 BMI result Body Mass Index 23.8 Course Course Course Narrative: This is an RME: Additional HPI, ROS, PE not included below will be deferred to primary provider. RME assessment and note performed by: Miriam Cuellar PA-C This is a 53-year-old male who presents emergency department with concerns of left-sided back pain radiating to left rib and left chest which started this morning. Denies consistent alcohol use. Plan labs, EKG, chest x-ray, further ER evaluation needed. Discharge Plan Discharge Prescriptions: No Action ibuprofen 600 mg tablet 600 mg PO Q6H PRN (Reason: pain) Qty: 20 0RF benzonatate 100 mg capsule 100 mg PO BID-TID PRN (Reason: cough) Qty: 30 0RF raaspkokuiup-liodvindo-qkezkdf 6.25-5-10 mg/5 mL syrup 5 ml PO Q4-6H PRN (Reason: flu symptoms) Qty: 118 0RF Print Language: Arabic
[2024-11-03 19:59] LABS: MANUAL DIFF FLAG NO
[2024-11-03 20:03] LABS: Hematocrit 42.7 % (42.0-52.0); Hemoglobin 14.3 g/dl (14.0-18.0); Imm Gran Abs Auto 0.05 X10*3/uL (0.00-0.03); Imm Gran Pct Auto 0.4 % (0.0-0.4); Lymphocytes Absolute Auto 0.9 X10*3/uL (1.2-4.9); Mean Corpuscular HGB Conc 33.5 g/dl (31.0-36.0); Mean Corpuscular Hemoglobin 28.0 pg (27.0-33.0); Mean Corpuscular Volume 83.6 fL (80.0-98.0); NRBC Abs Auto 0.000 X10*3/uL (0.0-0.012); NRBC Pct Auto 0.0 /100WBC (0.0-0.2); Platelet Count 207 X10*3/uL (160-400); Red Blood Count 5.11 X10*6/uL (4.60-5.80); White Blood Count 13.8 X10*3/uL (4.8-10.8)
[2024-11-03 20:16] LABS: Alanine Aminotransferase 20 U/L (0-40); Albumin Level 4.5 g/dL (3.5-5.0); Alkaline Phosphatase 73 U/L (39-117); Anion Gap 11 (12-20); Aspartate Amino Transferase 23 U/L (5-37); Blood Urea Nitrogen 11 mg/dL (9-16); COVID-19 Test Negative (Negative); Calcium 9.3 mg/dL (8.4-10.2); Carbon Dioxide 23 mmol/L (22-29); Chloride 109 mmol/L (96-108); Creatinine Clr Calc Pharmacy 81.5; Estimated Glomerular Filt Rate > 60; IDNOW Serial# 55D5AD1C; IDNOW Serial# 58CA691E; Influenza B2 Negative (Negative); Lipase 84 U/L (8-78); Magnesium 2.1 mg/dL (1.6-2.6); Potassium 4.3 mmol/L (3.3-5.1); Sodium 139 mmol/L (135-145); Total Protein 6.9 g/dL (6.5-8.0)
[2024-11-03 20:24] LABS: Troponin-I High Sensitivity < 2.7 ng/L (<3.5-35.0)
--- NOTE | 2024-11-03 20:37 | PC.NURSE ---
Pt reportiing mid back pain in radiology dept. Thoracic spine x ray ordered.
--- OUTSIDE RECORDS SUMMARY | 2024-11-03 22:10 | XMS_ITS | Patient Health Record ---
Author Organization [facility] Address [address] [place] [address] Care Team Providers Care Booking Prizer Name Role Phone Ros Gross MD Primary Care Provider Ze Guerrero [phone] Allergies Allergen (clinical drug ingredient) Drug/Non Drug Allergy documented on EMR Reaction Allergy Type Onset Date Status Penicillin Rash/Pruritus Drug Allergy Ac tive Reason For Referral No Information Immunizations Vaccine Route Administration Date Status Comme nts Influenza Unknown 11/20/2021 Administered Social History Tobacco Use: Social History Observation Description Date Details (start date - stop date) Never Smoker NA - NA Tobacco Use/Smoking Question Answer Notes Patient is [...] Never (0 point) Points 1 Interpretation Negative Section Notes: Nonsmoker; no sig alcohol Problems Problem Type SNOMED Code ICD Code Onset Dates Problem Status W/U Status Risk Notes Problem [id number] Screen for colon cancer (Z12.11) Active confirmed Problem [id number] Pre-procedural examination (Z01.818) Active confirmed Plan Of Treatment Future Test Test Name Order Date COLONOSCOPY 04/16/2022 Insurance Providers Payer Name Payer Address Payer Phone Subscriber Number Group Number Insured Name Patient Relationship to Insured Coverage Start Date Coverage End Date [employer] [address] [address] [place] [address] [id number] PATELTOÑA Self - patient is the insured Medical (General) History Medical History History ICD Code Denies [place],DM,CVA,Lung disease,renal dise ase Surgical History Surgery Date(Month/Year) Right inguinal hernia Tonsils Tendon repair in elbow right Tissue mass on both sides of chest remov ed
[2024-11-03 22:23] VITALS: BP 132/67; PULSE 56; RESP 15; TEMP 36.7; O2SAT 100
[2024-11-03 22:37] LABS: Appearance Urine Clear; Glucose Urine UA Negative (Negative); PH 7.0 (5.0-9.0); Specific Gravity - Urine 1.020 (1.005-1.025)
--- NOTE | 2024-11-03 23:38 | ED_ITS ---
HPI - Chest Pain General Chief Complaint: Chest Pain Stated Complaint: CP and back pain Time Seen by Provider: 11/03/24 23:23 History of Present Illness ED Provider: Dr. Jules [facility] narrative: 53-year-old male presented hospital today for sudden onset of back pain that radiates from his left chest down to his abdomen into his epigastric side. Patient stated that it is excruciating in nature. The patient did contacted his primary care doctor who prescribed some baclofen and ibuprofen without any alleviation. Patient stated that this started all of a sudden. Related Data Previous Rx's ?Medication ?Instructions ?Recorded ibuprofen 600 mg tablet 600 mg PO Q6H PRN pain #20 t abs 07/16/20 benzonatate 100 mg capsule 100 mg PO BID-TID PRN cough #30 02/15/22 caps jhwzokrvmzez-sdnnxezoyfzbk-fbasnzn 5 ml PO Q4-6H PRN f manjinder symptoms 02/15/22 6.25 mg-5 mg-10 mg/5 mL oral syrup #118 mL Allergies Allergy/AdvReac Type Severity Reaction Status Date / Time levofloxacin (From [facility]) Allergy Itching Verified 11/03/24 19:22 Penicillins Allergy Itching Verified 11/03/24 19:22 Review of Systems 2 Review of Systems: Pertinent review of systems as mentioned in HPI. All other system otherwise negative. [facility] Past Medical History [facility] Narrative: Medical history as mentioned in HPI Surgical History H/O excision of mass H/O elbow surgery Hx of tonsillectomy H/O right inguinal hernia repair Social History Social History Alcohol intake: current Alcohol intake frequency: holidays/special occasions only Patient Tobacco Use Status: Never used Tobacco Smoked in Last 30 Days: No Substance Use Type: Marijuana Substance Use Frequency: Daily Advance Directives: No Advance Directives Information Provided: No Do you have a plan to hurt others: No Plan Current occupational status: employed Current occupation: [employer] employee, rt handed Physical Exam 2 Exam: Exam: General: Appears to be in pain Head: Normacephalic, atraumatic ENT: oral mucosa moist, neck supple, no tracheal deviation Cardiovascular: regular rate, regular rhythm, no murmurs, rubbing, gallops Respiratory: CTAB, no wheeze, rales, rhonchi Gastrointestinal: Soft, non distended, diffusely tender Extremities: No limb pain or swelling, no calf tenderness Neurological: Awake and alert, no facial droop noted Skin: Warm and dry Psychiatric: Appropriate mood and thoughts Vital Signs: Vital Signs: Last Vital Signs Temp 98.5 F 11/04/24 00:53 Pulse 82 11/04/24 00:53 Resp 14 11/04/24 00:53 BP 124/70 11/04/24 00:53 Pulse Ox 98 11/04/24 00:53 O2 Del Method Room Air 11/04/24 00:53 BMI result Body Mass Index 23.8 Medications Administered Discontinued Medications Generic Name Dose Route Start Last Admin Trade Name Raulq PRN Reason Stop Dose Admin Famotidine 20 mg 11/03/24 23:36 11/03/24 23:40 Famotidine/Pf 20 Mg/2 Ml Vial IVPUSH 11/03/24 23:37 20 mg ONCE ONE Administration Hydromorphone HCl 0.5 mg 11/03/24 23:34 11/03/24 23:40 Hydromorphone Hcl 0.5 Mg/0.5 Ml Syringe IVPUSH 11/03/24 23:35 0.5 mg ONCE ONE Administration Protocol Hydromorphone HCl 0.5 mg 11/04/24 01:06 11/04/24 01:15 Hydromorphone Hcl 0.5 Mg/0.5 Ml Syringe IVPUSH 11/04/24 01:07 0.5 mg ONCE ONE Administration Protocol Sodium Chloride 1,000 mls @ 999 mls/hr 11/03/24 23:45 11/04/24 00:41 Ns IV 11/04/24 00:45 Infused .Q1H1M FAVIOLA Infusion Iohexol 85 ml 11/04/24 00:16 11/04/24 00:17 Iohexol 350 Mg/Ml 100 Ml Infus..Btl IV 11/04/24 00:17 85 ml ONCE ONE Administration Ondansetron HCl 4 mg 11/03/24 23:34 11/03/24 23:40 Ondansetron Hcl 4 Mg/2 Ml Vial IVPUSH 11/03/24 23:35 4 mg ONCE ONE Administration Medical Decision Making Medical Decision Making MDM Narrative: 53-year-old male presented hospital today for evaluation of left-sided back pain that radiates to his abdomen. This started all of a sudden. He denies any saddle paresthesia denies any bowel incontinence denies any or urinary retention denies any weakness in his lower extremity. I have low suspicion of cauda equina or any spinal pathologies that is causing his symptoms. We will plan to obtain a CTA chest abdomen and pelvis to rule out dissection. We will plan to give patient some IV Dilaudid for pain IV Zofran for nausea. IV fluid be initiated for the patient as well. Patient's CTA of the chest did not show any sign of dissection. There has finding of signs of pancreatitis. Patient's lipase is elevated 84. Given patient's clinical presentation lab finding imaging. I suspect patient likely has pancreatitis. Patient was given additional IV dose of Dilaudid for pain. Patient will be admitted for pancreatitis. Differential Diagnosis Differential Diagnoses: The differential diagnosis associated with the presentation includes Aortic dissection, gastritis, nephrolithiasis, cauda equina Lab Data MDM Lab Attestation statement: I reviewed the patient's lab results. 11/03/24 19:54 11/03/24 19:54 Labs: Lab Results 11/03/24 11/03/24 Range/Units 19:54 22:25 WBC 13.8 H (4.8-10.8) X10*3/uL RBC 5.11 (4.60-5.80) X10*6/uL Hgb 14.3 (14.0-18.0) g/dl Hct 42.7 (42.0-52.0) % MCV 83.6 (80.0-98.0) fL MCH 28.0 (27.0-33.0) pg MCHC 33.5 (31.0-36.0) g/dl RDW 12.4 (11.0-16.0) % Plt Count 207 (160-400) X10*3/uL MPV 10.4 (9.4-12.4) fL Immature Gran % (Auto) 0.4 (0.0-0.4) % Neut % (Auto) 84.4 H (45-73) % Lymph % (Auto) 6.7 L (20-40) % [place] % (Auto) 7.8 (2-11) % Eos % (Auto) 0.5 (0-4) % Baso % (Auto) 0.2 (0-2) % Lymph # (Auto) 0.9 L (1.2-4.9) X10*3/uL [place] # (Auto) 1.1 (0.1-1.2) X10*3/uL Eos # (Auto) 0.1 (0.0-0.4) X10*3/uL Baso # (Auto) 0.0 (0.0-0.2) X10*3/uL Abs Immat Gran (auto) 0.05 H (0.00-0.03) X10*3/uL Absolute Neuts (auto) 11.6 H (2.0-8.3) x10*3/uL Absolute Nucleated RBC 0.000 (0.0-0.012) X10*3/uL Nucleated RBC % (auto) 0.0 (0.0-0.2) /100WBC Sodium 139 (135-145) mmol/L Potassium 4.3 (3.3-5.1) mmol/L Chloride 109 H (96-108) mmol/L Carbon Dioxide 23 (22-29) mmol/L Anion Gap 11 L (12-20) BUN 11 (9-16) mg/dL Creatinine 0.79 (0.5-1.4) mg/dL Estim Creat Clear Calc 81.5 Estimated GFR > 60 Random Glucose 102 (60-115) mg/dL Calcium 9.3 (8.4-10.2) mg/dL Magnesium 2.1 (1.6-2.6) mg/dL Total Bilirubin 0.5 (0.0-1.0) mg/dL Direct Bilirubin 0.2 (0.0-0.5) mg/dL AST 23 (5-37) U/L ALT 20 (0-40) U/L Alkaline Phosphatase 73 (39-117) U/L Troponin I High Sens < 2.7 (<3.5-35.0) ng/L Total Protein 6.9 (6.5-8.0) g/dL Albumin 4.5 (3.5-5.0) g/dL Lipase 84 H (8-78) U/L Urine Color Yellow Urine Appearance Clear Urine pH 7.0 (5.0-9.0) Ur Specific [place] 1.020 (1.005-1.025) Urine Protein Negative (Neg-Trace) mg/dL Urine Glucose (UA) Negative (Negative) mg/dL Urine Ketones Negative (Negative) mg/dL Urine Blood Negative (Negative) Urine Nitrite Negative (Negative) Ur Leukocyte Esterase Negative (Negative) COVID-19 (ROXY) Negative (Negative) COVID-19 Clin Com See Note Influenza Type A (ANGEL) Negative (Negative) Influenza Type B (ANGEL) Negative (Negative) Influenza A & B Note See Note Independent Interpretation I performed an independent interpretation of an: CT Scan Radiology Impression Discussion of test interpretation with radiology: I have reviewed the radiologist's reading. Discharge Plan Discharge Clinical Impression: Pancreatitis Patient Disposition: Admitted As Inpatient Print Language: Macedonian
[2024-11-04] MEDS: iohexoL 350 MG/ML 100 ML INFUS..BTL 85 ML IV (00:17)
[2024-11-04 00:53] VITALS: BP 124/70; PULSE 82; RESP 14; TEMP 36.9; O2SAT 98
--- NOTE | 2024-11-04 02:41 | ED_ITS ---
HPI - Chest Pain General Chief Complaint: Chest Pain Stated Complaint: CP and back pain Time Seen by Provider: 11/03/24 23:23 Related Data Previous Rx's ?Medication ?Instructions ?Recorded ibuprofen 600 mg tablet 600 mg PO Q6H PRN pain #20 t abs 07/16/20 benzonatate 100 mg capsule 100 mg PO BID-TID PRN cough #30 02/15/22 caps xxrysjsawsrh-azcbaouprjrsf-lohabxe 5 ml PO Q4-6H PRN f manjinder symptoms 02/15/22 6.25 mg-5 mg-10 mg/5 mL oral syrup #118 mL Allergies Allergy/AdvReac Type Severity Reaction Status Date / Time levofloxacin (From Levaquin) Allergy Itching Verified 11/03/24 19:22 Penicillins Allergy Itching Verified 11/03/24 19:22 [facility] Past Medical History Surgical History H/O excision of mass H/O elbow surgery Hx of tonsillectomy H/O right inguinal hernia repair Social History Social History Alcohol intake: current Alcohol intake frequency: holidays/special occasions only Patient Tobacco Use Status: Never used Tobacco Smoked in Last 30 Days: No Substance Use Type: Marijuana Substance Use Frequency: Daily Advance Directives: No Advance Directives Information Provided: No Do you have a plan to hurt others: No Plan Current occupational status: employed Current occupation: [employer] employee, rt handed Physical Exam 2 Vital Signs: Vital Signs: Last Vital Signs Temp 98.5 F 11/04/24 00:53 Pulse 82 11/04/24 00:53 Resp 14 11/04/24 00:53 BP 124/70 11/04/24 00:53 Pulse Ox 98 11/04/24 00:53 O2 Del Method Room Air 11/04/24 00:53 BMI result Body Mass Index 23.8 Course Course Course Narrative: This is an RME: Additional HPI, ROS, PE not included below will be deferred to primary provider. RME assessment and note performed by: Miriam Cuellar PA-C This is a 53-year-old male who presents emergency department with concerns of left-sided back pain radiating to left rib and left chest which started this morning. Denies consistent alcohol use. Plan labs, EKG, chest x-ray, further ER evaluation needed. Medications Administered Discontinued Medications Generic Name Dose Route Start Last Admin Trade Name Darian PRN Reason Stop Dose Admin Famotidine 20 mg 11/03/24 23:36 11/03/24 23:40 Famotidine/Pf 20 Mg/2 Ml Vial IVPUSH 11/03/24 23:37 20 mg ONCE ONE Administration Hydromorphone HCl 0.5 mg 11/03/24 23:34 11/03/24 23:40 Hydromorphone Hcl 0.5 Mg/0.5 Ml Syringe IVPUSH 11/03/24 23:35 0.5 mg ONCE ONE Administration Protocol Hydromorphone HCl 0.5 mg 11/04/24 01:06 11/04/24 01:15 Hydromorphone Hcl 0.5 Mg/0.5 Ml Syringe IVPUSH 11/04/24 01:07 0.5 mg ONCE ONE Administration Protocol Sodium Chloride 1,000 mls @ 999 mls/hr 11/03/24 23:45 11/04/24 00:41 Ns IV 11/04/24 00:45 Infused .Q1H1M FAVIOLA Infusion Iohexol 85 ml 11/04/24 00:16 11/04/24 00:17 Iohexol 350 Mg/Ml 100 Ml Infus..Btl IV 11/04/24 00:17 85 ml ONCE ONE Administration Ondansetron HCl 4 mg 11/03/24 23:34 11/03/24 23:40 Ondansetron Hcl 4 Mg/2 Ml Vial IVPUSH 11/03/24 23:35 4 mg ONCE ONE Administration Medical Decision Making Lab Data 11/03/24 19:54 11/03/24 19:54 Labs: Lab Results 11/03/24 11/03/24 Range/Units 19:54 22:25 WBC 13.8 H (4.8-10.8) X10*3/uL RBC 5.11 (4.60-5.80) X10*6/uL Hgb 14.3 (14.0-18.0) g/dl Hct 42.7 (42.0-52.0) % MCV 83.6 (80.0-98.0) fL MCH 28.0 (27.0-33.0) pg MCHC 33.5 (31.0-36.0) g/dl RDW 12.4 (11.0-16.0) % Plt Count 207 (160-400) X10*3/uL MPV 10.4 (9.4-12.4) fL Immature Gran % (Auto) 0.4 (0.0-0.4) % Neut % (Auto) 84.4 H (45-73) % Lymph % (Auto) 6.7 L (20-40) % [place] % (Auto) 7.8 (2-11) % Eos % (Auto) 0.5 (0-4) % Baso % (Auto) 0.2 (0-2) % Lymph # (Auto) 0.9 L (1.2-4.9) X10*3/uL [place] # (Auto) 1.1 (0.1-1.2) X10*3/uL Eos # (Auto) 0.1 (0.0-0.4) X10*3/uL Baso # (Auto) 0.0 (0.0-0.2) X10*3/uL Abs Immat Gran (auto) 0.05 H (0.00-0.03) X10*3/uL Absolute Neuts (auto) 11.6 H (2.0-8.3) x10*3/uL Absolute Nucleated RBC 0.000 (0.0-0.012) X10*3/uL Nucleated RBC % (auto) 0.0 (0.0-0.2) /100WBC Sodium 139 (135-145) mmol/L Potassium 4.3 (3.3-5.1) mmol/L Chloride 109 H (96-108) mmol/L Carbon Dioxide 23 (22-29) mmol/L Anion Gap 11 L (12-20) BUN 11 (9-16) mg/dL Creatinine 0.79 (0.5-1.4) mg/dL Estim Creat Clear Calc 81.5 Estimated GFR > 60 Random Glucose 102 (60-115) mg/dL Calcium 9.3 (8.4-10.2) mg/dL Magnesium 2.1 (1.6-2.6) mg/dL Total Bilirubin 0.5 (0.0-1.0) mg/dL Direct Bilirubin 0.2 (0.0-0.5) mg/dL AST 23 (5-37) U/L ALT 20 (0-40) U/L Alkaline Phosphatase 73 (39-117) U/L Troponin I High Sens < 2.7 (<3.5-35.0) ng/L Total Protein 6.9 (6.5-8.0) g/dL Albumin 4.5 (3.5-5.0) g/dL Lipase 84 H (8-78) U/L Urine Color Yellow Urine Appearance Clear Urine pH 7.0 (5.0-9.0) Ur Specific [place] 1.020 (1.005-1.025) Urine Protein Negative (Neg-Trace) mg/dL Urine Glucose (UA) Negative (Negative) mg/dL Urine Ketones Negative (Negative) mg/dL Urine Blood Negative (Negative) Urine Nitrite Negative (Negative) Ur Leukocyte Esterase Negative (Negative) COVID-19 (ROXY) Negative (Negative) COVID-19 Clin Com See Note Influenza Type A (ANGEL) Negative (Negative) Influenza Type B (ANGEL) Negative (Negative) Influenza A & B Note See Note Discharge Plan Discharge Clinical Impression: Pancreatitis Qualifiers: Chronicity: acute Pancreatitis type: unspecified pancreatitis type Acute pancreatitis complication: unspecified Qualified Code(s): K85.90 - Acute pancreatitis without necrosis or infection, unspecified Patient Disposition: Admitted As Inpatient Print Language: Citizen Of [place]
[2024-11-04] MEDS: Lactated Ringers 1,000 ML 999 ML IV (02:50)
--- NOTE | 2024-11-04 02:59 | ED.CHESTPAIN ---
HPI - Chest Pain General Chief Complaint: Chest Pain Stated Complaint: CP and back pain Time Seen by Provider: 11/03/24 23:23 Related Data Previous Rx's ?Medication ?Instructions ?Recorded ibuprofen 600 mg tablet 600 mg PO Q6H PRN pain #20 tabs 07/16/20 benzonatate 100 mg capsule 100 mg PO BID-TID PRN cough #30 02/15/22 caps zxwnwoqbaceb-vouyvjlpcninw-gzhiwbd 5 ml PO Q4-6H PRN flu symptoms 02/15/22 6.25 mg-5 mg-10 mg/5 mL oral syrup #118 mL Allergies Allergy/AdvReac Type Severity Reaction Status Date / Time levofloxacin (From Levaquin) Allergy Itching Verified 11/03/24 19:22 Penicillins Allergy Itching Verified 11/03/24 19:22 [facility] Past Medical History Surgical History H/O excision of mass H/O elbow surgery Hx of tonsillectomy H/O right inguinal hernia repair Social History Social History (Reviewed 01/27/22 @ 08:40 by Cathy Bingham [facility]) Alcohol intake: current Alcohol intake frequency: holidays/special occasions only Patient Tobacco Use Status: Never used Tobacco Smoked in Last 30 Days: No Substance Use Type: Marijuana Substance Use Frequency: Daily Advance Directives: No Advance Directives Information Provided: No Do you have a plan to hurt others: No Plan Current occupational status: employed Current occupation: [employer] employee, rt handed Physical Exam Vital Signs: Vital Signs: Last Vital Signs Temp 98.5 F 11/04/24 00:53 Pulse 82 11/04/24 00:53 Resp 14 11/04/24 00:53 BP 124/70 11/04/24 00:53 Pulse Ox 98 11/04/24 00:53 O2 Del Method Room Air 11/04/24 00:53 BMI result Body Mass Index 23.8 Course Course Course Narrative: This is an RME: Additional HPI, ROS, PE not included below will be deferred to primary provider. RME assessment and note performed by: Miriam Cuellar PA-C This is a 53-year-old male who presents emergency department with concerns of left-sided back pain radiating to left rib and left chest which started this morning. Denies consistent alcohol use. Plan labs, EKG, chest x-ray, further ER evaluation needed. Medications Administered Generic Name Dose Route Start Last Admin Trade Name Fresrikanth PRN Reason Stop Dose Admin Lactated Ringer's 1,000 mls @ 999 mls/hr 11/04/24 02:45 11/04/24 02:50 Lr IV 11/04/24 03:45 999 mls/hr .Q1H1M FAVIOLA Administration Discontinued Medications Generic Name Dose Route Start Last Admin Trade Name Darian PRN Reason Stop Dose Admin Famotidine 20 mg 11/03/24 23:36 11/03/24 23:40 Famotidine/Pf 20 Mg/2 Ml Vial IVPUSH 11/03/24 23:37 20 mg ONCE ONE Administration Hydromorphone HCl 0.5 mg 11/03/24 23:34 11/03/24 23:40 Hydromorphone Hcl 0.5 Mg/0.5 Ml Syringe IVPUSH 11/03/24 23:35 0.5 mg ONCE ONE Administration Protocol Hydromorphone HCl 0.5 mg 11/04/24 01:06 11/04/24 01:15 Hydromorphone Hcl 0.5 Mg/0.5 Ml Syringe IVPUSH 11/04/24 01:07 0.5 mg ONCE ONE Administration Protocol Hydromorphone HCl 1 mg 11/04/24 02:53 11/04/24 02:57 Hydromorphone Hcl 1 Mg/Ml Syringe IVPUSH 11/04/24 02:54 1 mg ONCE ONE Administration Protocol Sodium Chloride 1,000 mls @ 999 mls/hr 11/03/24 23:45 11/04/24 00:41 Ns IV 11/04/24 00:45 Infused .Q1H1M FAVIOLA Infusion Iohexol 85 ml 11/04/24 00:16 11/04/24 00:17 Iohexol 350 Mg/Ml 100 Ml Infus..Btl IV 11/04/24 00:17 85 ml ONCE ONE Administration Ondansetron HCl 4 mg 11/03/24 23:34 11/03/24 23:40 Ondansetron Hcl 4 Mg/2 Ml Vial IVPUSH 11/03/24 23:35 4 mg ONCE ONE Administration Medical Decision Making Lab Data 11/03/24 19:54 11/03/24 19:54 Labs: Lab Results 11/03/24 11/03/24 Range/Units 19:54 22:25 WBC 13.8 H (4.8-10.8) X10*3/uL RBC 5.11 (4.60-5.80) X10*6/uL Hgb 14.3 (14.0-18.0) g/dl Hct 42.7 (42.0-52.0) % MCV 83.6 (80.0-98.0) fL MCH 28.0 (27.0-33.0) pg MCHC 33.5 (31.0-36.0) g/dl RDW 12.4 (11.0-16.0) % Plt Count 207 (160-400) X10*3/uL MPV 10.4 (9.4-12.4) fL Immature Gran % (Auto) 0.4 (0.0-0.4) % Neut % (Auto) 84.4 H (45-73) % Lymph % (Auto) 6.7 L (20-40) % [place] % (Auto) 7.8 (2-11) % Eos % (Auto) 0.5 (0-4) % Baso % (Auto) 0.2 (0-2) % Lymph # (Auto) 0.9 L (1.2-4.9) X10*3/uL [place] # (Auto) 1.1 (0.1-1.2) X10*3/uL Eos # (Auto) 0.1 (0.0-0.4) X10*3/uL Baso # (Auto) 0.0 (0.0-0.2) X10*3/uL Abs Immat Gran (auto) 0.05 H (0.00-0.03) X10*3/uL Absolute Neuts (auto) 11.6 H (2.0-8.3) x10*3/uL Absolute Nucleated RBC 0.000 (0.0-0.012) X10*3/uL Nucleated RBC % (auto) 0.0 (0.0-0.2) /100WBC Sodium 139 (135-145) mmol/L Potassium 4.3 (3.3-5.1) mmol/L Chloride 109 H (96-108) mmol/L Carbon Dioxide 23 (22-29) mmol/L Anion Gap 11 L (12-20) BUN 11 (9-16) mg/dL Creatinine 0.79 (0.5-1.4) mg/dL Estim Creat Clear Calc 81.5 Estimated GFR > 60 Random Glucose 102 (60-115) mg/dL Calcium 9.3 (8.4-10.2) mg/dL Magnesium 2.1 (1.6-2.6) mg/dL Total Bilirubin 0.5 (0.0-1.0) mg/dL Direct Bilirubin 0.2 (0.0-0.5) mg/dL AST 23 (5-37) U/L ALT 20 (0-40) U/L Alkaline Phosphatase 73 (39-117) U/L Troponin I High Sens < 2.7 (<3.5-35.0) ng/L Total Protein 6.9 (6.5-8.0) g/dL Albumin 4.5 (3.5-5.0) g/dL Lipase 84 H (8-78) U/L Urine Color Yellow Urine Appearance Clear Urine pH 7.0 (5.0-9.0) Ur Specific [place] 1.020 (1.005-1.025) Urine Protein Negative (Neg-Trace) mg/dL Urine Glucose (UA) Negative (Negative) mg/dL Urine Ketones Negative (Negative) mg/dL Urine Blood Negative (Negative) Urine Nitrite Negative (Negative) Ur Leukocyte Esterase Negative (Negative) COVID-19 (ROXY) Negative (Negative) COVID-19 Clin Com See Note Influenza Type A (ANGEL) Negative (Negative) Influenza Type B (ANGEL) Negative (Negative) Influenza A & B Note See Note Discharge Plan Discharge Clinical Impression: Pancreatitis Qualifiers: Chronicity: acute Pancreatitis type: unspecified pancreatitis type Acute pancreatitis complication: unspecified Qualified Code(s): K85.90 - Acute pancreatitis without necrosis or infection, unspecified Patient Disposition: Admitted As Inpatient Print Language: Sammar[place]
--- NOTE | 2024-11-04 04:16 | PM.IMHP ---
History of Present Illness Date of Service: 11/04/24 Attending physician on admission: Chuy Mars Chief Complaint: Abd pain Patient is a 53-year-old male with no significant past medical history, who presented to the ED due to severe left-sided pain including back, chest, shoulder and left upper abdomen. He has no history of similar in the past. No centralized chest pain, shortness of breath, headache or URI symptoms. Does have associated nausea and vomiting and his symptoms have progressively worsened throughout the day yesterday. He reports that he was eating and drinking as well as went to work however his pain had been worsening therefore he came to the emergency department. His pain has since improved since receiving pain management in the ED. he called his PCP prior to coming to the emergency department and was prescribed baclofen without any improvement. He denies any alcohol use. He does have a history of choledocholithiasis without a cholecystectomy. Pain worsens with lying flat. No urinary symptoms including frequency, urgency or dysuria. Workup in the ED was done for concern for aortic dissection, imaging negative for dissection however does show acute pancreatitis with elevated lipase level. Review of Systems Constitutional: Constitutional: Denies body ache(s), Denies chills, Denies fatigue, Denies fever(s) and Denies headache(s) Eyes: Eyes: Denies change in vision ENT: Denies headache(s), Denies nasal congestion and Denies sore throat Cardiovascular: Cardiovascular: Denies chest pain, Denies rapid heart rate, Denies leg edema, Denies lightheadedness and Denies dyspnea Respiratory: Respiratory: Denies chest congestion, Denies cough, Denies dyspnea and Denies wheezing Gastrointestinal: Gastrointestinal: Reports as per HPI Genitourinary: Genitourinary: Denies dysuria and Denies urinary urgency Musculoskeletal: Musculoskeletal: Reports back pain Integumentary/Breasts: Skin/Breast: Denies rash Neurologic: Denies confusion and Denies headache(s) Psychiatric: Psychiatric: Denies confusion Endocrine: Endocrine: Denies fatigue Hematologic/Lymphatic: Hematologic/Lymphatic: Denies easy bleeding and Denies easy bruising Allergic/Immunologic: Allergic/Immunologic: Denies wheezing [facility] Medical History GERD (gastroesophageal reflux disease) Vertigo Functional capacity: independent ambulation Surgical History H/O excision of mass H/O elbow surgery Hx of tonsillectomy H/O right inguinal hernia repair Social History Alcohol intake: current Alcohol intake frequency: holidays/special occasions only Patient Tobacco Use Status: Never used Tobacco Smoked in Last 30 Days: No Substance Use Type: Marijuana Substance Use Frequency: Daily Advance Directives: No Advance Directives Information Provided: No Do you have a plan to hurt others: No Plan Current occupational status: employed Current occupation: [employer] employee, rt handed Narrative: Smokes marijuana, no cigarettes. No illicit drug use. Social occasional alcohol, usually only on vacation, none recently. Meds Allergies Allergy/AdvReac Type Severity Reaction Status Date / Time levofloxacin (From Levaquin) Allergy Itching Verified 11/03/24 19:22 Penicillins Allergy Itching Verified 11/03/24 19:22 Active Medications: Current Medications Acetaminophen (Acetaminophen 325 Mg Tablet) 650 mg PO Q6H PRN PRN Reason: Pain, Mild 1-3,fever,headache Calcium Carbonate (Calcium Carbonate 750 Mg Tab.Chew) 750 mg PO Q4H PRN PRN Reason: Heartburn Enoxaparin Sodium (Enoxaparin Sodium 40 Mg/0.4 Ml Syringe) 40 mg SUBCUT Q24H FAVIOLA Hydromorphone HCl (Hydromorphone Hcl 1 Mg/Ml Syringe) 1 mg IVPUSH Q4H PRN; Protocol PRN Reason: Pain, Severe (Pain Scale 7-10) Lactated Ringer's (Lr) 1,000 mls @ 100 mls/hr IVCONT .Q10H FAVIOLA Magnesium Hydroxide (Milk Of Magnesia 30 Ml Oral.Susp) 30 ml PO DAILY PRN PRN Reason: Constipation Melatonin (Melatonin 3 Mg Tablet) 6 mg PO BEDTIME PRN PRN Reason: Insomnia Ondansetron HCl (Ondansetron Hcl 4 Mg/2 Ml Vial) 4 mg IVPUSH Q8H PRN PRN Reason: Nausea and Vomiting Oxycodone HCl (Oxycodone Hcl Immed Release 5 Mg Tablet) 5 mg PO Q6H PRN PRN Reason: Pain, Moderate(Pain Scale 4-6) Sodium Chloride (0.9 % Sodium Chloride Flush 3 Ml Syringe) 3 ml IVFLUSH QSHIFT [facility] Physical Exam Vital Signs and Narrative: Vital Signs: Last Vital Signs Temp 98.5 F 11/04/24 00:53 Pulse 82 11/04/24 00:53 Resp 14 11/04/24 00:53 BP 124/70 11/04/24 00:53 Pulse Ox 98 11/04/24 00:53 O2 Del Method Room Air 11/04/24 00:53 BMI result Body Mass Index 23.8 General: AOx3, no acute distress Resp: CTA bilaterally CVS: S1, S2, RRR GI: +BS, tender left side, no distention Skin: Warm, dry Neuro: Cranial nerves II-XII grossly intact bilaterally. Motor grossly intact bilaterally Extremities: No pitting edema Psych: Appropriate affect Const: General: No confusion Orientation/consciousness: No confusion Neuro: General: No confusion Results Labs 11/03/24 19:54 11/03/24 19:54 Labs: Laboratory Results - last 24 hr 11/03/24 11/03/24 19:54 22:25 MCV 83.6 MCH 28.0 MCHC 33.5 RDW 12.4 Plt Count 207 MPV 10.4 Immature Gran % (Auto) 0.4 Neut % (Auto) 84.4 H Lymph % (Auto) 6.7 L [place] % (Auto) 7.8 Eos % (Auto) 0.5 Baso % (Auto) 0.2 Lymph # (Auto) 0.9 L [place] # (Auto) 1.1 Eos # (Auto) 0.1 Baso # (Auto) 0.0 Abs Immat Gran (auto) 0.05 H Absolute Neuts (auto) 11.6 H Absolute Nucleated RBC 0.000 Nucleated RBC % (auto) 0.0 Anion Gap 11 L Estim Creat Clear Calc 81.5 Estimated GFR > 60 Random Glucose 102 Calcium 9.3 Magnesium 2.1 Total Bilirubin 0.5 Direct Bilirubin 0.2 AST 23 ALT 20 Alkaline Phosphatase 73 Troponin I High Sens < 2.7 Total Protein 6.9 Albumin 4.5 Lipase 84 H Urine Color Yellow Urine Appearance Clear Urine pH 7.0 Ur Specific [place] 1.020 Urine Protein Negative Urine Glucose (UA) Negative Urine Ketones Negative Urine Blood Negative Urine Nitrite Negative Ur Leukocyte Esterase Negative COVID-19 (ROXY) Negative COVID-19 Clin Com See Note Influenza Type A (ANGEL) Negative Influenza Type B (ANGEL) Negative Influenza A & B Note See Note Assessment and Plan (1) Pancreatitis: Qualifiers: Acute pancreatitis complication: unspecified Chronicity: acute Pancreatitis type: unspecified pancreatitis type Qualified Code(s): K85.90 - Acute pancreatitis without necrosis or infection, unspecified Status: Acute Plan Patient is a 53-year-old male with no significant past medical history, who presented to the ED due to severe left-sided pain including back, chest, shoulder and left upper abdomen. Imaging in the ED significant for acute pancreatitis with elevated lipase level. Acute pancreatitis with evidence on CT and elevated lipase - IV fluids - pain management - lipid panel Full code VTE prophylaxis: Lovenox Patient with acute pancreatitis with intractable pain, requiring admission for at least 2 midnights stay for IV fluids, pain management and monitoring. Quality Stroke Does the patient have a stroke diagnosis?: No VTE Prior VTE?: No VTE Risk Level:: Medical - moderate - high VTE Device Contraindication: Treatment Not Indicated VTE Drug Contraindication: N/A - Med Ordered
[2024-11-04] MEDS: Lactated Ringers 1,000 ML 100 ML IVCONT ×3 (04:39→23:01)
[2024-11-04 04:45] VITALS: BP 121/70; PULSE 64; RESP 11; TEMP 36.8; O2SAT 95
[2024-11-04 05:00] LABS: Hematocrit 39.1 % (42.0-52.0); Hemoglobin 13.0 g/dl (14.0-18.0); Mean Corpuscular HGB Conc 33.2 g/dl (31.0-36.0); Mean Corpuscular Hemoglobin 28.1 pg (27.0-33.0); Mean Corpuscular Volume 84.6 fL (80.0-98.0); NRBC Abs Auto 0.000 X10*3/uL (0.0-0.012); NRBC Pct Auto 0.0 /100WBC (0.0-0.2); Platelet Count 228 X10*3/uL (160-400); Red Blood Count 4.62 X10*6/uL (4.60-5.80); White Blood Count 16.6 X10*3/uL (4.8-10.8)
[2024-11-04 05:29] LABS: Alanine Aminotransferase 17 U/L (0-40); Albumin Level 3.9 g/dL (3.5-5.0); Alkaline Phosphatase 74 U/L (39-117); Anion Gap 11 (12-20); Aspartate Amino Transferase 21 U/L (5-37); Blood Urea Nitrogen 8 mg/dL (9-16); Calcium 8.6 mg/dL (8.4-10.2); Carbon Dioxide 23 mmol/L (22-29); Chloride 108 mmol/L (96-108); Cholesterol 160 mg/dL (<200); Creatinine Clr Calc Pharmacy 89.5; Estimated Glomerular Filt Rate > 60; HDL Cholesterol 53 mg/dL (>40); Magnesium 1.9 mg/dL (1.6-2.6); Potassium 4.6 mmol/L (3.3-5.1); Sodium 137 mmol/L (135-145); Total Protein 6.4 g/dL (6.5-8.0); Triglycerides 52 mg/dL (<150)
--- NOTE | 2024-11-04 08:46 | PHA.MEDREC ---
Addendum entered by August Kiran, Juanita 11/04/24 09:03: med rec checked by [facility] Original Note: Pharmacy Consult ? Medication Reconciliation Pharmacy has completed the medication reconciliation. Patient was able to confirm his medications.
[2024-11-04 10:27] VITALS: RESP 16
[2024-11-04 12:36] VITALS: BMI 25.1
[2024-11-04 12:45] VITALS: BP 115/57; PULSE 60; RESP 20; TEMP 36.1; O2SAT 99
[2024-11-04 12:55] VITALS: BMI 23.6
--- NOTE | 2024-11-04 12:57 | MHC.CM.PN ---
CM MET WITH PTS AT BEDSIDE PT IS INDEPENDENT WITH ALL CARE, HAS NO DME OR SERVICES HAS A HCP, MAY WANT TO UPDATE ONCE AWAKE PCP: DR MENDEZ DCP: HOME, WILL TRANSPORT
[2024-11-04] MEDS: oxyCODONE HCl Immed Release 5 MG TABLET PO ×2 (13:11→21:48)
--- NOTE | 2024-11-04 15:05 | P.CNGI_ITS ---
History of Present Illness Data of Consult Service Date: 11/04/24 Requesting physician: Xuan Watts Primary Care Provider: Jarrett Ochoa MD HPI Reason for consult: Pancreatitis 53 y/o M with PMH of GERD who is here for sudden onset of back pain and chest pain and found to have possible acute pancreatitis. Gastroenterology has been consulted for further evaluation. History obtained from the patient who reports onset of pain morning that started in mid lower back and radiated around his flank and up his chest. Pain was severe and intolerable at home. Associated with nausea and vomiting. Some chills, no fevers. Does not report drinking. No history of gallstones. No new medications. In the emergency room, patient was noted to have leukocytosis with lipase of 84. Personal review of CTA abdomen and pelvis shows peripancreatic stranding in panc tail. No PD dilation or biliary dilation noted. Currently, patient reports improvement in pain after hydration and medication. He feels hungry and would like diet to be reinstated. Review of Systems 2 Review of Systems: Yes all other systems are reviewed and are negative PMFSH Past Medical History Medical History GERD (gastroesophageal reflux disease) Vertigo Surgical History Surgical History H/O excision of mass H/O elbow surgery Hx of tonsillectomy H/O right inguinal hernia repair Social History Social History Household Members: Spouse Housing: House Do you presently have visiting nurse or other home services: No Alcohol intake: current Alcohol intake frequency: holidays/special occasions only Patient Tobacco Use Status: Never used Tobacco Smoked in Last 30 Days: No Substance Use Type: Marijuana Substance Use Frequency: Daily Have you been hit, kicked, punched, or otherwise hurt by someone within the past year? If so, by whom?: No Do you feel safe in your current relationship?: Yes Is there a partner from a previous relationship who is making you feel unsafe now?: No Are you made to feel afraid or neglected: No Advance Directives: No Advance Directives Information Provided: No Advance Directives on File: No Do you have a plan to hurt others: No Plan Recently lost weight without trying: No Eating poorly because of decreased appetite: No Poor oral hygiene: No service: No Current occupational status: employed Current occupation: [employer] employee, rt handed Meds Allergies Allergy/AdvReac Type Severity Reaction Status Date / Time levofloxacin (From Levaquin) Allergy Itching Verified 11/03/24 19:22 Penicillins Allergy Itching Verified 11/03/24 19:22 Active Medications: Current Medications Acetaminophen (Acetaminophen 325 Mg Tablet) 650 mg PO Q6H PRN PRN Reason: Pain, Mild 1-3,fever,headache Last Admin: 11/04/24 13:22 Dose: 650 mg Calcium Carbonate (Calcium Carbonate 750 Mg Tab.Chew) 750 mg PO Q4H PRN PRN Reason: Heartburn Enoxaparin Sodium (Enoxaparin Sodium 40 Mg/0.4 Ml Syringe) 40 mg SUBCUT DAILY [facility] Last Admin: 11/04/24 04:47 Dose: Not Given Hydromorphone HCl (Hydromorphone Hcl 1 Mg/Ml Syringe) 1 mg IVPUSH Q4H PRN; Protocol PRN Reason: Pain, Severe (Pain Scale 7-10) Last Admin: 11/04/24 10:27 Dose: 1 mg Lactated Ringer's (Lr) 1,000 mls @ 100 mls/hr IVCONT .Q10H [facility] Last Admin: 11/04/24 13:14 Dose: 100 mls/hr Magnesium Hydroxide (Milk Of Magnesia 30 Ml Oral.Susp) 30 ml PO DAILY PRN PRN Reason: Constipation Meclizine HCl (Meclizine Hcl 12.5 Mg Tablet) 12.5 mg PO BEDTIME PRN PRN Reason: verd Melatonin (Melatonin 3 Mg Tablet) 6 mg PO BEDTIME PRN PRN Reason: Insomnia Omeprazole (Omeprazole 20 Mg Capsule.Dr) 20 mg PO DAILY@0630 [facility] Last Admin: 11/04/24 13:22 Dose: 20 mg Ondansetron HCl (Ondansetron Hcl 4 Mg/2 Ml Vial) 4 mg IVPUSH Q8H PRN PRN Reason: Nausea and Vomiting Last Admin: 11/04/24 10:28 Dose: 4 mg Oxycodone HCl (Oxycodone Hcl Immed Release 5 Mg Tablet) 5 mg PO Q6H PRN PRN Reason: Pain, Moderate(Pain Scale 4-6) Last Admin: 11/04/24 13:11 Dose: 5 mg Sodium Chloride (0.9 % Sodium Chloride Flush 3 Ml Syringe) 3 ml IVFLUSH QSHIFT [facility] Last Admin: 11/04/24 07:34 Dose: Not Given Home Medications ?Medication ?Instructions ?Recorded ?Confirmed ?Last Taken ?Type meclizine 12.5 mg tablet 12.5 mg PO BEDTIME PRN verd 11/04/24 11/04/24 Unknown History omeprazole 20 mg tablet,delayed 20 mg PO DAILY PRN Aci d Reflux 11/04/24 11/04/24 Unknown History release Physical Exam 2 Exam: Exam: Middle-aged gentleman No acute distress Nonicteric Abdomen soft, nontender, nondistended, no Rodriguez's No lower extremity edema Vital Signs: Vital Signs: Last Vital Signs Temp 97.0 F 11/04/24 12:45 Pulse 60 11/04/24 12:45 Resp 20 11/04/24 12:45 BP 115/57 L 11/04/24 12:45 Pulse Ox 99 11/04/24 12:45 O2 Del Method Room Air 11/04/24 12:45 BMI result Body Mass Index 23.6 Results Labs 11/04/24 04:37 11/04/24 04:37 Labs: Short CBC 11/03/24 11/04/24 Range/Units 19:54 04:37 WBC 13.8 H 16.6 H (4.8-10.8) X10*3/uL Hgb 14.3 13.0 L (14.0-18.0) g/dl Hct 42.7 39.1 L (42.0-52.0) % Plt Count 207 228 (160-400) X10*3/uL BMP 11/03/24 11/04/24 19:54 04:37 Sodium 139 137 Potassium 4.3 4.6 Chloride 109 H 108 Carbon Dioxide 23 23 BUN 11 8 L Creatinine 0.79 0.72 Calcium 9.3 8.6 D Liver Function 11/03/24 11/04/24 Range/Units 19:54 04:37 Total Bilirubin 0.5 0.9 (0.0-1.0) mg/dL Direct Bilirubin 0.2 (0.0-0.5) mg/dL AST 23 21 (5-37) U/L ALT 20 17 (0-40) U/L Alkaline Phosphatase 73 74 (39-117) U/L Albumin 4.5 3.9 (3.5-5.0) g/dL Urine 11/03/24 Range/Units 22:25 Urine Color Yellow Urine Appearance Clear Urine pH 7.0 (5.0-9.0) Ur Specific [place] 1.020 (1.005-1.025) Urine Protein Negative (Neg-Trace) mg/dL Urine Glucose (UA) Negative (Negative) mg/dL Assessment and Plan (1) Pancreatitis: Qualifiers: Acute pancreatitis complication: unspecified Chronicity: acute P ancreatitis type: unspecified pancreatitis type Qualified Code(s): K85.90 - Acute pancreatitis without necrosis or infection, unspecified Status: Acute Plan Has mild acute interstitial pancreatitis as per [place] criteria. Low lipase noted, however patient presented > 24h from initial onset of pain. Underlying etiology unclear. Gallstones consider, however LFTs normal and no ductal dilation, in addition, location of pancreatitis is also atypical for biliary pancreatitis. No report of alcohol. No new meds. Anatomical causes such as panc divisum, pancreatic cyst etc not ruled out. Autoimmune pancreatitis also in Ddx. Plan: -consider scheduled pain management with Tylenol 1000mg TID and PRN oxy 5 TID for break through pain -avoid NSAIDs -monitor BG and avoid hypoglycemia to minimize risk of local complications -OK for PO diet as tolerated - LOW fat -Monitor abd exam -if has worsening abdominal tenderness and/or unable to advance diet over the next 24h, consider repeat CT abd/pel with IV contrast -otherwise outpatient MRI panc protocol in 2-3 months, can be coordinated through his GI Dr Gilmore's office. Thank you for allowing me to participate in his care. Please do not hesitate to reach out for any questions or concerns. Procedures Date of Service Date of Service: 11/04/24
--- NOTE | 2024-11-04 15:09 | PM.EVENT ---
Event Note Date of Service: 11/04/24 Event Note: Chart reviewed patient examined. Agree with H&P and plan as outlined. Await GI input. Pain control adequate. Continue IV fluids Time Spent With Patient Time: Total time managing care of this patient today ____ minutes.
[2024-11-04 15:22] VITALS: BP 104/59; PULSE 69; RESP 18; TEMP 36.3; O2SAT 97
[2024-11-04 19:21] VITALS: BP 100/57; PULSE 64; RESP 17; TEMP 36; O2SAT 99
[2024-11-05 03:18] VITALS: BP 99/56; PULSE 61; RESP 18; TEMP 35.9; O2SAT 98
[2024-11-05] MEDS: oxyCODONE HCl Immed Release 5 MG TABLET PO ×2 (05:24→12:03)
[2024-11-05 05:33] LABS: Hematocrit 34.8 % (42.0-52.0); Hemoglobin 11.6 g/dl (14.0-18.0); Mean Corpuscular HGB Conc 33.3 g/dl (31.0-36.0); Mean Corpuscular Hemoglobin 28.4 pg (27.0-33.0); Mean Corpuscular Volume 85.3 fL (80.0-98.0); NRBC Abs Auto 0.000 X10*3/uL (0.0-0.012); NRBC Pct Auto 0.0 /100WBC (0.0-0.2); Platelet Count 173 X10*3/uL (160-400); Red Blood Count 4.08 X10*6/uL (4.60-5.80); White Blood Count 10.8 X10*3/uL (4.8-10.8)
[2024-11-05 05:59] LABS: Alanine Aminotransferase 12 U/L (0-40); Albumin Level 3.2 g/dL (3.5-5.0); Alkaline Phosphatase 56 U/L (39-117); Anion Gap 10 (12-20); Aspartate Amino Transferase 22 U/L (5-37); Blood Urea Nitrogen 8 mg/dL (9-16); Calcium 8.4 mg/dL (8.4-10.2); Carbon Dioxide 23 mmol/L (22-29); Chloride 107 mmol/L (96-108); Creatinine Clr Calc Pharmacy 79.5; Estimated Glomerular Filt Rate > 60; Magnesium 2.0 mg/dL (1.6-2.6); Potassium 4.2 mmol/L (3.3-5.1); Sodium 136 mmol/L (135-145); Total Protein 5.8 g/dL (6.5-8.0)
[2024-11-05 07:51] VITALS: BP 118/64; PULSE 63; RESP 16; TEMP 36; O2SAT 99
[2024-11-05] MEDS: iohexoL 350 MG/ML 100 ML INFUS..BTL IV (09:37)
[2024-11-05] MEDS: Lactated Ringers 1,000 ML 100 ML IVCONT ×2 (09:44→19:29)
--- NOTE | 2024-11-05 12:49 | HO.PM.IMPN ---
Subjective Subjective Date of Service: 11/05/24 Interval History: Did not tolerate solids overnight. Pain improved with time Review of Systems Denies chest pain Denies shortness of breath Denies nausea vomiting diarrhea Denies fever chills Physical Exam Vital Signs: Vital Signs: Last Vital Signs Temp 96.8 F 11/05/24 07:51 Pulse 63 11/05/24 07:51 Resp 16 11/05/24 07:51 BP 118/64 11/05/24 07:51 Pulse Ox 99 11/05/24 07:51 O2 Del Method Room Air 11/05/24 07:51 BMI result Body Mass Index 23.6 Const: Other: Awake alert oriented x3 in no acute distress Resp: Other: Clear to auscultation bilaterally no rales rhonchi or wheezes Cardio: Other: No S4; positive S1-S2; no S3 murmurs rubs or gallops GI: Other: Soft mildly tender across the epigastrium normoactive bowel sounds Extrem: Other: No edema bilaterally Objective Data Active Medications Acetaminophen (Acetaminophen 325 Mg Tablet) 650 mg PO Q6H PRN PRN Reason: Pain, Mild 1-3,fever,headache Last Admin: 11/05/24 09:47 Dose: 650 mg Documented By: DARSHANA Calcium Carbonate (Calcium Carbonate 750 Mg Tab.Chew) 750 mg PO Q4H PRN PRN Reason: Heartburn Enoxaparin Sodium (Enoxaparin Sodium 40 Mg/0.4 Ml Syringe) 40 mg SUBCUT DAILY [facility] Last Admin: 11/05/24 09:47 Dose: Not Given Documented By: DARSHANA Non-Admin Reason: Patient Refused Hydromorphone HCl (Hydromorphone Hcl 1 Mg/Ml Syringe) 1 mg IVPUSH Q4H PRN; Protocol PRN Reason: Pain, Severe (Pain Scale 7-10) Last Admin: 11/04/24 18:30 Dose: 1 mg Documented By: BOLA Lactated Ringer's (Lr) 1,000 mls @ 100 mls/hr IVCONT .Q10H [facility] Last Admin: 11/05/24 09:44 Dose: 100 mls/hr Documented By: DARSHANA Magnesium Hydroxide (Milk Of Magnesia 30 Ml Oral.Susp) 30 ml PO DAILY PRN PRN Reason: Constipation Meclizine HCl (Meclizine Hcl 12.5 Mg Tablet) 12.5 mg PO BEDTIME PRN PRN Reason: verd Melatonin (Melatonin 3 Mg Tablet) 6 mg PO BEDTIME PRN PRN Reason: Insomnia Omeprazole (Omeprazole 20 Mg Capsule.Dr) 20 mg PO DAILY@0630 [facility] Last Admin: 11/05/24 05:22 Dose: 20 mg Documented By: DMITRIY Ondansetron HCl (Ondansetron Hcl 4 Mg/2 Ml Vial) 4 mg IVPUSH Q8H PRN PRN Reason: Nausea and Vomiting Last Admin: 11/04/24 18:30 Dose: 4 mg Documented By: BOLA Oxycodone HCl (Oxycodone Hcl Immed Release 5 Mg Tablet) 5 mg PO Q6H PRN PRN Reason: Pain, Moderate(Pain Scale 4-6) Last Admin: 11/05/24 12:03 Dose: 5 mg Documented By: DARSHANA Sodium Chloride (0.9 % Sodium Chloride Flush 3 Ml Syringe) 3 ml IVFLUSH [facility] Last Admin: 11/05/24 07:18 Dose: Not Given Documented By: DARSHANA Non-Admin Reason: IV Running Labs 11/05/24 05:21 11/05/24 05:21 Labs: Laboratory Results - last 24 hr 11/05/24 05:21 MCV 85.3 MCH 28.4 MCHC 33.3 RDW 12.5 Plt Count 173 MPV 10.6 Absolute Nucleated RBC 0.000 Nucleated RBC % (auto) 0.0 Anion Gap 10 L Estim Creat Clear Calc 79.5 Estimated GFR > 60 Random Glucose 92 Calcium 8.4 Magnesium 2.0 Total Bilirubin 0.7 AST 22 ALT 12 Alkaline Phosphatase 56 Total Protein 5.8 L Albumin 3.2 L Assessment and Plan (1) Pancreatitis: Status: Acute Plan Patient is a 53-year-old male with no significant past medical history, who presented to the ED due to severe left-sided pain including back, chest, shoulder and left upper abdomen. Imaging in the ED significant for acute pancreatitis with elevated lipase level. 1.Acute pancreatitis -CT scan repeated with IV contrast... Mild peripancreatic stranding -IV fluids - pain management -full liquid diet Full code VTE prophylaxis: Lovenox Patient requires ongoing hospitalization to treat pancreatitis with supplemental IV fluid and pain management Quality Stroke Does the patient have a stroke diagnosis?: No VTE Prior VTE?: No VTE Risk Level:: Medical - moderate - high VTE Device Contraindication: Treatment Not Indicated VTE Drug Contraindication: N/A - Med Ordered
[2024-11-05 15:26] VITALS: BP 118/59; PULSE 65; RESP 18; TEMP 36.1; O2SAT 97
[2024-11-05 18:14] VITALS: BP 120/56; PULSE 59; RESP 19; O2SAT 99
[2024-11-05 19:45] VITALS: BP 127/61; PULSE 76; RESP 18; TEMP 36.1; O2SAT 98
[2024-11-06 04:00] VITALS: BP 115/57; PULSE 60; RESP 18; TEMP 36.6; O2SAT 98
[2024-11-06] MEDS: Lactated Ringers 1,000 ML 100 ML IVCONT (05:06)
[2024-11-06 06:25] LABS: Hematocrit 37.2 % (42.0-52.0); Hemoglobin 12.2 g/dl (14.0-18.0); Mean Corpuscular HGB Conc 32.8 g/dl (31.0-36.0); Mean Corpuscular Hemoglobin 27.5 pg (27.0-33.0); Mean Corpuscular Volume 84.0 fL (80.0-98.0); NRBC Abs Auto 0.000 X10*3/uL (0.0-0.012); NRBC Pct Auto 0.0 /100WBC (0.0-0.2); Platelet Count 222 X10*3/uL (160-400); Red Blood Count 4.43 X10*6/uL (4.60-5.80); White Blood Count 8.7 X10*3/uL (4.8-10.8)
[2024-11-06 06:47] LABS: Alanine Aminotransferase 12 U/L (0-40); Albumin Level 3.7 g/dL (3.5-5.0); Alkaline Phosphatase 60 U/L (39-117); Anion Gap 10 (12-20); Aspartate Amino Transferase 18 U/L (5-37); Blood Urea Nitrogen 8 mg/dL (9-16); Calcium 8.9 mg/dL (8.4-10.2); Carbon Dioxide 26 mmol/L (22-29); Chloride 107 mmol/L (96-108); Creatinine Clr Calc Pharmacy 75.8; Estimated Glomerular Filt Rate > 60; Magnesium 2.0 mg/dL (1.6-2.6); Potassium 4.1 mmol/L (3.3-5.1); Sodium 139 mmol/L (135-145); Total Protein 6.3 g/dL (6.5-8.0)
[2024-11-06 07:43] VITALS: BP 148/75; PULSE 61; RESP 16; TEMP 36; O2SAT 100
[2024-11-06 07:45] LABS: Lipase 24 U/L (8-78)
--- NOTE | 2024-11-06 14:10 | P.DS_ITS ---
DS: Providers Provider Date of Service: 11/06/24 Date of admission: 11/04/24 03:05 Date of discharge: 11/06/24 Primary care physician: Jarrett Ochoa MD Consults: 11/04/24 08:55 Consult to Gastroenterology Routine Consulting Provider: [facility] Reason for consultation: pancreatitis Has provider been notified: No DS: Diagnosis Discharge Diagnosis (1) Pancreatitis: Status: Acute DS: Summary Hospital Course Hospital Course: 53-year-old male with no significant past medical history, who presented to the ED due to severe left-sided pain including back, chest, shoulder and left upper abdomen. He has no history of similar in the past. No centralized chest pain, shortness of breath, headache or URI symptoms. Does have associated nausea and vomiting and his symptoms have progressively worsened throughout the day yesterday. He reports that he was eating and drinking as well as went to work however his pain had been worsening therefore he came to the emergency department. His pain has since improved since receiving pain management in the ED. he called his PCP prior to coming to the emergency department and was prescribed baclofen without any improvement. He denies any alcohol use. He does have a history of choledocholithiasis without a cholecystectomy. Pain worsens with lying flat. No urinary symptoms including frequency, urgency or dysuria. Hospital course Patient admitted to general medical floor. Kept NPO with pain medicine. Initial lipase minimally elevated. Attempt after 24 hours with diet resulted in increased pain. Seen by GI who recommended abdominal and pelvis CAT scan with IV contrast. This demonstrated peripancreatic stranding and changes consistent with acute pancreatitis. Over the next 24 hours, his lipase returned to normal. On the day of discharge he has tolerated both breakfast and lunch without any return of the pain in his eager to go home. He will follow up with his GI (Dr. Greene) as an outpatient Time Attestation Discharge Coordination Time (in mins): 35 Quality: Safe Use of Opioids Does Pt have an Active Cancer Diagnosis on the Problem List?: No Quality: Stroke Does the patient have a stroke diagnosis?: No Physical Exam Vital Signs: Vital Signs: Last Vital Signs Temp 96.8 F 11/06/24 07:43 Pulse 61 11/06/24 07:43 Resp 16 11/06/24 07:43 BP 148/75 H 11/06/24 07:43 Pulse Ox 100 11/06/24 07:43 O2 Del Method Room Air 11/06/24 07:43 BMI result Body Mass Index 23.6 Const: Other: Awake alert oriented x3 in no acute distress Resp: Other: Clear to auscultation bilaterally no rales rhonchi or wheezes Cardio: Other: No S4; positive S1-S2; no S3 murmurs rubs or gallops GI: Other: Soft mildly tender across the epigastrium normoactive bowel sounds Extrem: Other: No edema bilaterally DS: Data Data Completed and Pending Labs on day of discharge: Laboratory Results - last 24 hr 11/06/24 06:08 WBC 8.7 RBC 4.43 L Hgb 12.2 L Hct 37.2 L MCV 84.0 MCH 27.5 MCHC 32.8 RDW 12.3 Plt Count 222 D MPV 10.8 Absolute Nucleated RBC 0.000 Nucleated RBC % (auto) 0.0 Sodium 139 Potassium 4.1 Chloride 107 Carbon Dioxide 26 Anion Gap 10 L BUN 8 L Creatinine 0.85 Estim Creat Clear Calc 75.8 Estimated GFR > 60 Random Glucose 91 Calcium 8.9 Magnesium 2.0 Total Bilirubin 0.5 AST 18 ALT 12 Alkaline Phosphatase 60 Total Protein 6.3 L Albumin 3.7 Lipase 24 Discharge Plan Discharge Anticipated Discharge Date/Time: 11/06/24 14:08 Patient Disposition: Home, Self-Care Discharge Diagnosis: Pancreatitis Referrals: Jarrett Ochoa MD [Primary Care Provider, Internal Medicine] - 1 Week Discharge Medications: Continued meclizine 12.5 mg Tablet 12.5 mg PO BEDTIME PRN (Reason: verd) omeprazole 20 mg Tablet,Delayed Release (Dr/Ec) 20 mg PO DAILY PRN (Reason: Acid Reflux) Discharge Orders: Discharge Order (Routine); Ordered 11/06/24 Ordered By: Julien Ayala Diet: Advance to usual diet Activity on Discharge: As tolerated Stand Alone Forms: Patient Portal Discharge page Print Language: Luxembourgish Care Plan Goals: Resume all meds as taken prior to hospitalization Health Concerns: Call Dr. Greene office to arrange follow up appointment Plan of Treatment: If pain or fever returns returned to hospital Assessment: See discharge summary Patient Instructions: Pancreatitis (GEN)
--- NOTE | 2024-11-13 19:30 | PC.NURSE ---
Administered dilaudid 1mg per order @ 1830 11/04. Pain score 7/10 per pt. Incorrectly documented as 6/10.
== END 2024-11-06 14:24 | disposition home or self-care (01) | DRG 282 ==
LOC: HO.ED 11-04 03:38 → HO.EDOVER 11-04 04:12 → HO.S3 11-04 11:58
PROVIDERS: Physician Assistant Medical; Admitting Provider Physician Assistant; Emergency Provider Student in an Organized Health Care Education/Training Program; PCP Internal Medicine; Visit Provider Hospitalist
DX: K85.90 Acute pancreatitis without necrosis or infection, unspecified (principal); Z20.822 Contact with and (suspected) exposure to COVID-19
CPT/HCPCS: 36415; 71046; 71275; 72072; 74174; 74177; 80048; 80053; 80061; 80076; 81003; 83690; 83735; 84484; 85025; 85027; 87502; 87635; 93005; 99221; 99285; J0737; J1171; J1308; J2405; J2765; J7120; Q9967

== ENCOUNTER → 2024-11-03 18:47 | Outpatient (BNV) | payer OTHER, SELFPAY | PROVIDERS: Admitting Provider Physician Assistant; Emergency Provider Student in an Organized Health Care Education/Training Program; Visit Provider Internal Medicine Cardiovascular Disease | DX: R00.1 Bradycardia, unspecified (principal) | CPT/HCPCS: 93010 ==

== ENCOUNTER → 2024-11-03 19:33 | Outpatient (BNV) | payer OTHER, SELFPAY | PROVIDERS: Visit Provider Radiology Vascular & Interventional Radiology | DX: M54.6 Pain in thoracic spine (principal); R05.9 Cough, unspecified | CPT/HCPCS: 71046; 72072 ==

== ENCOUNTER 2024-11-04 03:05 | Outpatient (BNV) | payer OTHER, SELFPAY | END 2024-11-05 09:25 | PROVIDERS: Admitting Provider Physician Assistant; Emergency Provider Student in an Organized Health Care Education/Training Program; PCP Internal Medicine; Visit Provider Radiology Vascular & Interventional Radiology | DX: K85.90 Acute pancreatitis without necrosis or infection, unspecified (principal) | CPT/HCPCS: 74177 ==

== ENCOUNTER → 2024-11-04 03:05 | Outpatient (BNV) | payer OTHER, SELFPAY | PROVIDERS: Admitting Provider Physician Assistant; Emergency Provider Student in an Organized Health Care Education/Training Program; PCP Internal Medicine; Visit Provider Internal Medicine | DX: K85.90 Acute pancreatitis without necrosis or infection, unspecified (principal) | CPT/HCPCS: 99222 ==

== ENCOUNTER → 2024-11-04 03:05 | Outpatient (BNV) | payer OTHER, SELFPAY | PROVIDERS: Admitting Provider Physician Assistant; Emergency Provider Student in an Organized Health Care Education/Training Program; PCP Internal Medicine; Visit Provider Hospitalist | DX: K85.90 Acute pancreatitis without necrosis or infection, unspecified (principal) | CPT/HCPCS: 99222; 99499 ==

== ENCOUNTER → 2024-11-04 | Outpatient (BNV) | payer OTHER, SELFPAY | PROVIDERS: Emergency Provider Student in an Organized Health Care Education/Training Program; Visit Provider Radiology Diagnostic Radiology | DX: R60.0 Localized edema (principal) | CPT/HCPCS: 71275; 74174 ==